=== PATIENT | male | born 1980 | race Caucasian/White ===

== ENCOUNTER 2017-02-23 12:55 | Inpatient (IN) | payer OTHER ==
[2017-02-23 13:32] VITALS: BMI 41.9
--- NOTE | 2017-02-23 16:28 | HP ---
CIWA Score - CIWA Score Nausea/Vomitin Muscle Tremors: 3 Anxiety: 4-Mod. Anxious/Guarded Agitation: 0-Normal Activity Paroxysmal Sweats: 2 Orientation: 2-Disoriented Date<2 days Tacttile Disturbances: 0-None Auditory Disturbances: 2-Mild Harshness/Frighten Visual Disturbances: 2-Mild Sensitivity Headache: 0-None Present CIWA-Ar Total Score: 18 Admission ROS S - HPI Chief Complaint: "I need to recover and to learn how not to do this again. I would like to get in to Rehab after I am done with Detox." Patient is here to Detox from Alcohol. Allergies/Adverse Reactions: Allergies Allergy/AdvReac Type Severity Reaction Status Date / Time No Known Allergies Allergy Verified 02/23/17 15:14 History of Present Illness: Patient is a 36 YO male here to Detox from Alcohol. This is patient's first Detox admission at [facility]. Patient had both a Detox and Rehab admission at [facility] in 09/2015. Exam Limitations: No Limitations - Ebola screening Have you traveled outside of the country in the last 21 days: No Have you had contact with anyone from an Ebola affected area: No Have you been sick,other than usual withdrawal symptoms: No Do you have a fever: No - Review of Systems Constitutional: Chills, Diaphoresis, Fever, Loss of Appetite, Malaise, Night Sweats, Unintentional Wgt. Loss (Lost approx. 45 lbs. over last 6 months.) EENT: reports: Tinnitus (Left Ear.) Respiratory: reports: No Symptoms reported Cardiac: reports: Palpitations GI: reports: Diarrhea, Nausea, Vomiting, Indigestion (Acid Reflux.), Abdominal cramping : reports: No Symptoms Reported Musculoskeletal: reports: Back Pain, Joint Pain, Joint Stiffness Integumentary: reports: No Symptoms Reported Neuro: reports: Headache, Numbness (Soles of Bilateral Feet.), Tingling (Soles of Bilateral Feet.), Tremors Endocrine: reports: No Symptoms Reported Hematology: reports: No Symptoms Reported, Easy Bruising Psychiatric: reports: Judgement Intact, Mood/Affect Appropiate, Depressed ( Treatment with both medication and counseling in the past. No treatment currently.), Disorientated (To Current Day.) Other Systems: Reviewed and Negative Patient History - Patient Medical History Hx Anemia: No Hx Asthma: Yes (Pt is on MDI.) Hx Chronic Obstructive Pulmonary Disease (COPD): No Hx Cancer: No Hx Cardiac Disorders: Yes (Arrythmia, treated with lifestyle change, no meds.) Hx Congestive Heart Failure: No Hx Hypertension: Yes (on meds., Unable to recall name.) Hx Hypercholesterolemia: No Hx Pacemaker: No HX Cerebrovascular Accident: No Hx Seizures: No Hx Dementia: No Hx Diabetes: No Hx Gastrointestinal Disorders: Yes (Hx of GERD.) Hx Liver Disease: No Hx Genitourinary Disorders: No Hx Sexually Transmitted Disorders: No Hx Renal Disease (ESRD): No Hx Thyroid Disease: No Hx Human Immunodeficiency Virus (HIV): No (Never Tested.) Hx Hepatitis C: No (Never Tested.) Hx Depression: Yes (No previous treatment.) Hx Suicide Attempt: No (PATIENT DENIES CURRENT SI / HI.) Hx Bipolar Disorder: Yes (Meds. in past, none currently.) Hx Schizophrenia: No Other Medical History: DENIES. - Patient Surgical History Past Surgical History: Yes Hx Neurologic Surgery: No Hx Cataract Extraction: No Hx Cardiac Surgery: No Hx Lung Surgery: No Hx Breast Surgery: No Hx Breast Biopsy: No Hx Abdominal Surgery: No Hx Appendectomy: No Hx Cholecystectomy: Yes (2012) Hx Genitourinary Surgery: No Hx Orthopedic Surgery: No Other Surgical History: Bilateral inguinal hernia repairs, 2012. Anesthesia Reaction: No - PPD History Previous Implant?: Yes Documented Results: Negative w/o proof Implanted On Prior R Admission?: No PPD to be Administered?: Yes - Reproductive History Patient is a Female of Child Bearing Age (11 -55 yrs old): No (PATIENT IS MALE.) - Smoking Cessation Smoking history: Current every day smoker Have you smoked in the past 12 months: Yes Aproximately how many cigarettes per day: 10 Cigars Per Day: 0 Hx Chewing Tobacco Use: No Initiated information on smoking cessation: Yes 'Breaking Loose' booklet given: 02/23/17 (GIVEN ON UNIT.) - Substance & Tx. History Hx Alcohol Use: Yes Hx Substance Use: Yes Substance Use Type: Alcohol, Cocaine, Heroin Hx Substance Use Treatment: Yes (1 Previous /Detox and Rehab admission at [facility] (09/2015).) - Substances Abused Alcohol Route: Oral Frequency: Daily Amount used: 3 - 24 oz beers/ 1 pint of vodka Age of first use: 18 Date of Last Use: 02/21/17 Cocaine Route: Smoking Frequency: Daily Amount used: 7 Dimes. Age of first use: 33 Date of Last Use: 02/21/17 Heroin Route: Smoking Frequency: 1-2 times per week Amount used: 1 bag Age of first use: 33 Date of Last Use: 02/21/17 Family Disease History - Family Disease History Family Disease History: Diabetes: Grandparent, Mother Admission Physical Exam [facility] - Vital Signs Vital Signs: Vital Signs - 24 hr 02/23/17 13:27 Temperature 97.8 F Pulse Rate 76 Respiratory 18 Rate Blood Pressure 158/92 - Physical General Appearance: Yes: No Apparent Distress, Nourished, Appropriately Dressed , Tremorous, Anxious HEENTM: Yes: Hearing grossly Normal, Normocephalic, Normal Voice, LIZ, Pharynx Normal Respiratory: Yes: Chest Non-Tender, Lungs Clear, No Respiratory Distress, No Accessory Muscle Use Neck: Yes: No masses,lesions,Nodules, Supple, Trachea in good position Breast: Yes: Breast Exam Deferred Cardiology: Yes: Regular Rhythm, Regular Rate, S1, S2 Abdominal: Yes: Normal Bowel Sounds, Non Tender, Soft, Protuberent Genitourinary: Yes: Within Normal Limits Back: Yes: Decreased Range of Motion Musculoskeletal: Yes: Gait Steady, Back pain, Joint Stiffness Extremities: Yes: Tremors, Pedal Edema (Also in Bilateral Lower Legs. Patient reports that this has been occurring for > 1 month. Patient was evaluated in ER previously, but did not follow-up with medical provider afterward. No erythema noted in bilateral legs / feet. Patient denies pain in bilateral legs / feet.) Neurological: Yes: Alert, Normal Mood/Affect, Normal Response, Disoriented (To Current Day / Date.) Integumentary: Yes: Normal Color, Dry, Warm Lymphatic: Yes: Within Normal Limits - Diagnostic (1) Alcohol dependence with uncomplicated withdrawal Current Visit: Yes Status: Acute (2) Opioid dependence, uncomplicated Current Visit: Yes Status: Chronic (3) Nicotine dependence Current Visit: Yes Status: Chronic Qualifiers: Nicotine product type: cigarettes Substance use status: uncomplicated Qualified Code(s): F17.210 - Nicotine dependence, cigarettes, uncomplicated (4) Depression (emotion) Current Visit: Yes Status: Suspected Qualifiers: Depression Type: unspecified Qualified Code(s): F32.9 - Major depressive disorder, single episode, unspecified (5) History of hypertension Current Visit: Yes Status: Chronic (6) Bilateral lower extremity edema Current Visit: Yes Status: Chronic (7) History of bipolar disorder Current Visit: Yes Status: Chronic (8) GERD (gastroesophageal reflux disease) Current Visit: Yes Status: Chronic Qualifiers: Esophagitis presence: esophagitis presence not specified Qualified Code(s) : K21.9 - Gastro-esophageal reflux disease without esophagitis (9) Asthma Current Visit: Yes Status: Chronic Qualifiers: Asthma severity: mild Asthma persistence: intermittent Asthma complication type: uncomplicated Qualified Code(s): J45.20 - Mild intermittent asthma, uncomplicated (10) History of cardiac arrhythmia Current Visit: Yes Status: Suspected (11) PCP (phencyclidine) abuse Current Visit: Yes Status: Acute Comment: 1 time only, approx. 6 days ago. [facility] Breath Alcohol Content Breath Alcohol Content: 0 Urine Drug Screen - Results Drug Screen Negative: No Urine Drug Screen Results: ROJAS-Cocaine
[2017-02-23] MEDS ORDERED: ACETAMINOPHEN 325 MG TABLET (FP) PO PRN (17:20)
[2017-02-23] MEDS ORDERED: NICOTINE POLACRILEX 2 MG GUM BC PRN (17:20)
[2017-02-23] MEDS ORDERED: MAGNESIUM CITRATE 300 ML BOTTLE PO PRN (17:20)
[2017-02-23] MEDS ORDERED: MAGNESIUM HYDROX 2400MG/30ML ORAL SUSPENSION 30 ML CUP PO PRN (17:20)
[2017-02-23] MEDS ORDERED: IBUPROFEN 400 MG TABLET (FP) PO PRN (17:20)
[2017-02-23] MEDS ORDERED: MENTHOL/PHENOL 1 EACH UD MM PRN (17:20)
[2017-02-23] MEDS ORDERED: guaiFENesin/D-METHORPHAN HB 10 ML UNIT-DOSE CUPS PO PRN (17:20)
[2017-02-23] MEDS ORDERED: MAG HYDROX/AL HYDROX/SIMETH 30 ML UNIT-DOSE CUP PO PRN (17:20)
[2017-02-23] MEDS ORDERED: chlordiazePOXIDE HCL 25 MG CAPSULE PO PRN (17:20)
[2017-02-23] MEDS ORDERED: LOPERAMIDE HCL 2 MG CAPSULE PO PRN (17:20)
[2017-02-23] MEDS ORDERED: P-EPHED 60MG/TRIPROLIDI 2.5MG TABLET PO PRN (17:20)
[2017-02-23] MEDS ORDERED: ALBUTEROL SO4 18 GM HFA INHALER IH PRN (17:23)
[2017-02-23] MEDS ORDERED: chlordiazePOXIDE HCL 25 MG CAPSULE PO ONE (18:00)
[2017-02-23] MEDS: NICOTINE 21 MG/24 HOURS TOPICAL PATCH TD SCH (18:40)
[2017-02-23] MEDS: chlordiazePOXIDE HCL 25 MG CAPSULE PO SCH (22:07)
[2017-02-23] MEDS: THIAMINE HCL 100 MG TABLET (FP) PO SCH (22:08)
[2017-02-24 01:26] LABS: URINE APPEARANCE SLCLOUDY; URINE BILIRUBIN NEGATIVE (NEGATIVE); URINE BLOOD 3+ (NEGATIVE); URINE COLOR YELLOW; URINE GLUCOSE (UA) 1+ (NEGATIVE); URINE KETONE NEGATIVE (NEGATIVE); URINE NITRITE NEGATIVE (NEGATIVE); URINE PROTEIN NEGATIVE (NEGATIVE)
[2017-02-24 02:05] LABS: URINE MUCUS RARE; URINE RBC 79 /hpf (0-3); URINE WBC 4 /hpf (3-5)
[2017-02-24] MEDS: chlordiazePOXIDE HCL 25 MG CAPSULE PO SCH ×4 (05:39→22:05)
--- NOTE | 2017-02-24 09:03 | EKG ---
Test Reason : Blood Pressure : / mmHG Vent. Rate : 069 BPM Atrial Rate : 069 BPM P-R Int : 144 ms QRS Dur : 090 ms QT Int : 420 ms P-R-T Axes : 061 063 060 degrees QTc Int : 450 ms NORMAL SINUS RHYTHM MINIMAL VOLTAGE CRITERIA FOR LVH, MAY BE NORMAL VARIANT BORDERLINE ECG NO PREVIOUS ECGS AVAILABLE Confirmed by ALFONSO FARMER MD ([id number]) on 02/24/2017 9:02:54 AM Referred By: Confirmed By:ALFONSO FARMER MD
[2017-02-24 10:24] LABS: MCH 28.8 pg (25.7-33.7); MEAN CELL VOLUME 87.2 fl (80-96); MEAN PLT VOLUME 8.9 fl (7.5-11.1); PLATELET COUNT 260 K/MM3 (134-434); RDW 14.3 % (11.9-15.9); WHITE BLOOD COUNT 10.3 K/mm3 (4.0-10.0)
[2017-02-24] MEDS: PRENATAL VITAMINS W/ FOLIC ACID TABLET (FP) PO SCH (10:28)
[2017-02-24] MEDS: FUROSEMIDE 20 MG TABLET (FP) PO SCH (10:28)
[2017-02-24] MEDS: NICOTINE 21 MG/24 HOURS TOPICAL PATCH TD SCH (10:28)
[2017-02-24 11:14] LABS: URINE LEUK ESTERASE Negative (NEGATIVE)
[2017-02-24 11:24] LABS: HIV 1 & 2 AB NEGATIVE; HIV 1 AGp24 NEGATIVE
--- NOTE | 2017-02-24 12:13 | CONSULT ---
[facility] Psychiatric Consult - Data Date of interview: 02/24/17 Admission source: [facility] Identifying data: First admission to [facility] for this 36 y/o male seeking detox treatment on for heroin,alcohol and cocaine dependence.Patient is single without children,domiciled,unemployed and deprived of financial assistance. Substance Abuse History: Confirmed by patient in this session.See current [facility] report for details : Smoking history: Current every day smoker. Have you smoked in the past 12 months: Yes. Aproximately how many cigarettes per day: 10. Cigars Per Day: 0. Hx Chewing Tobacco Use: No. Initiated information on smoking cessation: Yes. 'Breaking Loose' booklet given: 02/23/17 (GIVEN ON UNIT.). - Substance & Tx. History. Hx Alcohol Use: Yes. Hx Substance Use: Yes. Substance Use Type: Alcohol, Cocaine, Heroin. Hx Substance Use Treatment : Yes (1 Previous /Detox and Rehab admission at [facility] (09/2015).). - Substances Abused. Alcohol. Route: Oral. Frequency: Daily. Amount used: 3 - 24 oz beers/ 1 pint of vodka. Age of first use: 18. Date of Last Use: . Cocaine. Route: Smoking. Frequency: Daily. Amount used: 7 Dimes. Age of first use: 33. Date of Last Use: 02/21/17. Heroin. Route: Smoking. Frequency: 1-2 times per week. Amount used: 1 bag. Age of first use: 33. Date of Last Use: 02/21/17 Medical History: Bronchial asthma,hypertension,GERD and a history of bilateral inguinal herniorraphy. Psychiatric History: Patient denies. Physical/Sexual Abuse/Trauma History: Patient denies. Additional Comment: Urine Drug Screen Results: ROJAS-Cocaine.Noted. Mental Status Exam - Mental Status Exam Alert and Oriented to: Time, Place, Person Cognitive Function: Good Patient Appearance: Well Groomed Mood: Hopeful, Euthymic Affect: Appropriate, Normal Range Patient Behavior: Appropriate, Cooperative Speech Pattern: Clear, Appropriate Voice Loudness: Normal Thought Process: Intact, Goal Oriented Thought Disorder: Not Present Hallucinations: Denies Suicidal Ideation: Denies Homicidal Ideation: Denies Insight/Judgement: Poor Sleep: Fair Appetite: Good Muscle strength/Tone: Normal Gait/Station: Normal Psychiatric Findings - Problem List ([place] 1, 2,3) (1) Alcohol dependence with uncomplicated withdrawal Current Visit: Yes Status: Acute (2) Opioid dependence, uncomplicated Current Visit: Yes Status: Acute (3) Cocaine dependence Current Visit: Yes Status: Acute (4) Nicotine dependence Current Visit: Yes Status: Acute Qualifiers: Nicotine product type: cigarettes Substance use status: uncomplicated Qualified Code(s): F17.210 - Nicotine dependence, cigarettes, uncomplicated - Initial Treatment Plan Initial Treatment Plan: Psychoeducation.Detoxification in effect.Observation.
[2017-02-24 12:49] LABS: ALBUMIN 3.8 g/dl (3.4-5.0); ALK PHOS 120 U/L (45-117); ANION GAP 8 (8-16); BILIRUBIN,TOTAL 0.4 mg/dL (0.2-1.0); CALCIUM 8.1 mg/dL (8.5-10.1); CO2 26 mmol/L (21-32); CREATININE 1.2 mg/dL (0.7-1.3); GLUCOSE,RANDOM 123 mg/dL (74-106); SGOT/AST 19 U/L (15-37); SGPT/ALT 19 U/L (12-78); TOT PROT 6.9 g/dl (6.4-8.2)
--- NOTE | 2017-02-24 14:54 | PN ---
[facility] CIWA - CIWA Score Nausea/Vomitin-No Nausea/No Vomiting Muscle Tremors: 4-Moderate,w/Arms Extend Anxiety: 4-Mod. Anxious/Guarded Agitation: 4-Moderately Restless Paroxysmal Sweats: 3 Orientation: 0-Oriented Tacttile Disturbances: 2-Mild Itch/Numbness/Burn Auditory Disturbances: 0-None Visual Disturbances: 1-Very Mild Sensitivity Headache: 0-None Present CIWA-Ar Total Score: 18 S Progress Note (SOAP) Subjective: Tremors, Sweating, Body Aches, Anxious. Objective: PT. A & O X 3, OBSERVED AMBULATING ON UNIT. NO ACUTE DISTRESS. 02/24/17 14:52 Vital Signs Temperature 97.7 F 02/24/17 12:59 Pulse Rate 78 02/24/17 12:59 Respiratory Rate 18 02/24/17 12:59 Blood Pressure 136/74 02/24/17 12:59 O2 Sat by Pulse Oximetry (%) Laboratory Tests 02/23/17 02/23/17 02/24/17 06:00 23:00 06:00 WBC 10.3 H RBC 5.24 Hgb 15.1 Hct 45.7 MCV 87.2 MCH 28.8 MCHC 33.0 RDW 14.3 Plt Count 260 MPV 8.9 Sodium Potassium Chloride Carbon Dioxide Anion Gap BUN Creatinine Creat Clearance w eGFR Random Glucose Calcium Total Bilirubin AST ALT Alkaline Phosphatase Total Protein Albumin Urine Color Yellow Urine Appearance Slcloudy Urine pH 5.0 Ur Specific [place] 1.026 Urine Protein Negative Urine Glucose (UA) 1+ H Urine Ketones Negative Urine Blood 3+ H Urine Nitrite Negative Urine Bilirubin Negative Urine Urobilinogen 2.0 Ur Leukocyte Esterase Negative Urine WBC (Auto) 4 Urine RBC (Auto) 79 Ur Epithelial Cells Few Urine Mucus Rare RPR Titer HIV 1&2 Antibody Screen Negative HIV P24 Antigen Negative 02/24/17 02/24/17 06:00 06:00 WBC RBC Hgb Hct MCV MCH MCHC RDW Plt Count MPV Sodium 140 Potassium 3.9 Chloride 106 Carbon Dioxide 26 Anion Gap 8 BUN 18 Creatinine 1.2 Creat Clearance w eGFR > 60 Random Glucose 123 H Calcium 8.1 L Total Bilirubin 0.4 AST 19 ALT 19 Alkaline Phosphatase 120 H Total Protein 6.9 Albumin 3.8 Urine Color Urine Appearance Urine pH Ur Specific [place] Urine Protein Urine Glucose (UA) Urine Ketones Urine Blood Urine Nitrite Urine Bilirubin Urine Urobilinogen Ur Leukocyte Esterase Urine WBC (Auto) Urine RBC (Auto) Ur Epithelial Cells Urine Mucus RPR Titer Nonreactive HIV 1&2 Antibody Screen HIV P24 Antigen LABS NOTED. HCV AB RESULT PENDING. 02/24/17 14:54 Assessment: 02/24/17 14:52 WITHDRAWAL SYMPTOMS. Plan: CONTINUE DETOX. ADVISED PT. TO KEEP FEET ELEVATED WHILE LAYING BED TO HELP ALLEVIATE EDEMA IN LEGS. REPEAT UA FOR ADMISSION ABNORMALITIES.
[2017-02-24] MEDS: THIAMINE HCL 100 MG TABLET (FP) PO SCH (22:05)
[2017-02-25] MEDS: chlordiazePOXIDE HCL 25 MG CAPSULE PO SCH ×3 (05:57→17:04)
[2017-02-25] MEDS: PRENATAL VITAMINS W/ FOLIC ACID TABLET (FP) PO SCH (10:45)
[2017-02-25] MEDS: NICOTINE 21 MG/24 HOURS TOPICAL PATCH TD SCH (10:45)
[2017-02-25] MEDS: FUROSEMIDE 20 MG TABLET (FP) PO SCH (10:45)
--- NOTE | 2017-02-25 11:34 | PN ---
S CIWA - CIWA Score Nausea/Vomitin-Mild Nausea/No Vomiting Muscle Tremors: 2 Anxiety: 2 Agitation: 2 Paroxysmal Sweats: 3 Orientation: 0-Oriented Tacttile Disturbances: 1-Very Mild Itch/Numbness Auditory Disturbances: 0-None Visual Disturbances: 0-None Headache: 2-Mild CIWA-Ar Total Score: 13 S Progress Note (SOAP) Subjective: Sweating, anxious, interrupted sleep, nausea Objective: 02/25/17 11:30 Last Vital Signs Temp Pulse Resp BP Pulse Ox 96.7 F L 99 H 20 141/96 02/25/17 08:59 02/25/17 08:59 02/25/17 08:59 02/25/17 08:59 Elevated b/p Laboratory Tests 02/23/17 02/23/17 02/24/17 06:00 23:00 06:00 WBC 10.3 H RBC 5.24 Hgb 15.1 Hct 45.7 MCV 87.2 MCH 28.8 MCHC 33.0 RDW 14.3 Plt Count 260 MPV 8.9 Sodium Potassium Chloride Carbon Dioxide Anion Gap BUN Creatinine Creat Clearance w eGFR Random Glucose Calcium Total Bilirubin AST ALT Alkaline Phosphatase Total Protein Albumin Urine Color Yellow Urine Appearance Slcloudy Urine pH 5.0 Ur Specific [place] 1.026 Urine Protein Negative Urine Glucose (UA) 1+ H Urine Ketones Negative Urine Blood 3+ H Urine Nitrite Negative Urine Bilirubin Negative Urine Urobilinogen 2.0 Ur Leukocyte Esterase Negative Urine WBC (Auto) 4 Urine RBC (Auto) 79 Ur Epithelial Cells Few Urine Mucus Rare RPR Titer HIV 1&2 Antibody Screen Negative HIV P24 Antigen Negative 02/24/17 02/24/17 06:00 06:00 WBC RBC Hgb Hct MCV MCH MCHC RDW Plt Count MPV Sodium 140 Potassium 3.9 Chloride 106 Carbon Dioxide 26 Anion Gap 8 BUN 18 Creatinine 1.2 Creat Clearance w eGFR > 60 Random Glucose 123 H Calcium 8.1 L Total Bilirubin 0.4 AST 19 ALT 19 Alkaline Phosphatase 120 H Total Protein 6.9 Albumin 3.8 Urine Color Urine Appearance Urine pH Ur Specific [place] Urine Protein Urine Glucose (UA) Urine Ketones Urine Blood Urine Nitrite Urine Bilirubin Urine Urobilinogen Ur Leukocyte Esterase Urine WBC (Auto) Urine RBC (Auto) Ur Epithelial Cells Urine Mucus RPR Titer Nonreactive HIV 1&2 Antibody Screen HIV P24 Antigen Labs noted: UA abnormal, serum glucose 123 Assessment: 02/25/17 11:32 Withdrawal symptoms Noted with elevated blood pressure, hyperglycemia and abnormal UA Plan: Continue detox Elevated blood pressure: most likely due to withdrawal (previous readings within normal limits), continue to monitor, will order clonidine 0.1mg PO q8hr prn if b/p >140/90 Hyperglycemia: repeat serum glucose, send HbA1c Abnormal UA: encouraged to drink lots of water, repeat UA
[2017-02-25 20:45] LABS: URINE APPEARANCE CLEAR; URINE BILIRUBIN NEGATIVE (NEGATIVE); URINE BLOOD 1+ (NEGATIVE); URINE COLOR STRAW; URINE GLUCOSE (UA) NEGATIVE (NEGATIVE); URINE KETONE NEGATIVE (NEGATIVE); URINE NITRITE NEGATIVE (NEGATIVE); URINE PROTEIN NEGATIVE (NEGATIVE); URINE UROBILINOGEN NEGATIVE mg/dL (0.2-1.0)
[2017-02-25 20:51] LABS: URINE RBC 2 /hpf (0-3); URINE WBC <1 /hpf (3-5)
[2017-02-25 22:57] LABS: URINE LEUK ESTERASE Negative (NEGATIVE)
[2017-02-25] MEDS: chlordiazePOXIDE 5 MG CAPSULE PO SCH (23:01)
[2017-02-25] MEDS: THIAMINE HCL 100 MG TABLET (FP) PO SCH (23:01)
[2017-02-25] MEDS: cloNIDine HCL 0.1 MG TABLET PO PRN (23:01)
[2017-02-26] MEDS: chlordiazePOXIDE 5 MG CAPSULE PO SCH (06:30)
[2017-02-26] MEDS: FUROSEMIDE 20 MG TABLET (FP) PO SCH (10:07)
[2017-02-26] MEDS: NICOTINE 21 MG/24 HOURS TOPICAL PATCH TD SCH (10:07)
[2017-02-26] MEDS: PRENATAL VITAMINS W/ FOLIC ACID TABLET (FP) PO SCH (10:07)
--- NOTE | 2017-02-26 12:04 | PN ---
S Progress Note (SOAP) Subjective: Fatigue, Sweating. Objective: PT. A & O X 3, OBSERVED AMBULATING ON UNIT. NO ACUTE DISTRESS. 02/26/17 12:01 Vital Signs Temperature 97.5 F L 02/26/17 09:41 Pulse Rate 91 H 02/26/17 09:41 Respiratory Rate 18 02/26/17 09:41 Blood Pressure 135/91 02/26/17 09:41 O2 Sat by Pulse Oximetry (%) Laboratory Tests 02/23/17 02/23/17 02/24/17 06:00 23:00 06:00 WBC 10.3 H RBC 5.24 Hgb 15.1 Hct 45.7 MCV 87.2 MCH 28.8 MCHC 33.0 RDW 14.3 Plt Count 260 MPV 8.9 Sodium Potassium Chloride Carbon Dioxide Anion Gap BUN Creatinine Creat Clearance w eGFR Random Glucose Fasting Glucose Calcium Total Bilirubin AST ALT Alkaline Phosphatase Total Protein Albumin Urine Color Yellow Urine Appearance Slcloudy Urine pH 5.0 Ur Specific [place] 1.026 Urine Protein Negative Urine Glucose (UA) 1+ H Urine Ketones Negative Urine Blood 3+ H Urine Nitrite Negative Urine Bilirubin Negative Urine Urobilinogen 2.0 Ur Leukocyte Esterase Negative Urine WBC (Auto) 4 Urine RBC (Auto) 79 Ur Epithelial Cells Few Urine Mucus Rare RPR Titer HIV 1&2 Antibody Screen Negative HIV P24 Antigen Negative 02/24/17 02/24/17 02/25/17 06:00 06:00 11:52 WBC RBC Hgb Hct MCV MCH MCHC RDW Plt Count MPV Sodium 140 Potassium 3.9 Chloride 106 Carbon Dioxide 26 Anion Gap 8 BUN 18 Creatinine 1.2 Creat Clearance w eGFR > 60 Random Glucose 123 H Fasting Glucose Calcium 8.1 L Total Bilirubin 0.4 AST 19 ALT 19 Alkaline Phosphatase 120 H Total Protein 6.9 Albumin 3.8 Urine Color Straw Urine Appearance Clear Urine pH 7.0 D Ur Specific [place] 1.005 Urine Protein Negative Urine Glucose (UA) Negative Urine Ketones Negative Urine Blood 1+ H Urine Nitrite Negative Urine Bilirubin Negative Urine Urobilinogen Negative Ur Leukocyte Esterase Negative Urine WBC (Auto) <1 Urine RBC (Auto) 2 Ur Epithelial Cells Rare Urine Mucus RPR Titer Nonreactive HIV 1&2 Antibody Screen HIV P24 Antigen 02/26/17 07:00 WBC RBC Hgb Hct MCV MCH MCHC RDW Plt Count MPV Sodium Potassium Chloride Carbon Dioxide Anion Gap BUN Creatinine Creat Clearance w eGFR Random Glucose Fasting Glucose 90 Calcium Total Bilirubin AST ALT Alkaline Phosphatase Total Protein Albumin Urine Color Urine Appearance Urine pH Ur Specific [place] Urine Protein Urine Glucose (UA) Urine Ketones Urine Blood Urine Nitrite Urine Bilirubin Urine Urobilinogen Ur Leukocyte Esterase Urine WBC (Auto) Urine RBC (Auto) Ur Epithelial Cells Urine Mucus RPR Titer HIV 1&2 Antibody Screen HIV P24 Antigen LABS NOTED. FASTING GLUCOSE LEVEL NOTED. HCV AB RESULT PENDING. 02/26/17 12:04 Assessment: 02/26/17 12:02 WITHDRAWAL SYMPTOMS. Plan: CONTINUE DETOX.
[2017-02-26] MEDS: cloNIDine HCL 0.1 MG TABLET PO PRN (17:25)
[2017-02-26] MEDS: chlordiazePOXIDE HCL 10 MG CAPSULE PO SCH ×2 (17:25→22:18)
[2017-02-26] MEDS: THIAMINE HCL 100 MG TABLET (FP) PO SCH (22:18)
[2017-02-26] MEDS ORDERED: chlordiazePOXIDE HCL 10 MG CAPSULE PO SCH (23:00)
--- NOTE | 2017-02-26 23:54 | PN ---
[facility] Progress Note Note: received nurse call that the patient refuses librium 10 mg one dose today
[2017-02-27] MEDS: NICOTINE 21 MG/24 HOURS TOPICAL PATCH TD SCH (09:00)
[2017-02-27] MEDS: PRENATAL VITAMINS W/ FOLIC ACID TABLET (FP) PO SCH (09:00)
[2017-02-27] MEDS: FUROSEMIDE 20 MG TABLET (FP) PO SCH (09:00)
[2017-02-27 09:42] VITALS: BP 133/84; PULSE 90; TEMP 96.9
--- NOTE | 2017-02-27 12:41 | DS ---
[facility] Detox Discharge Summary Admission Date: 02/23/17 Discharge Date: 02/27/17 - History Present History: Alcohol Dependence, Cocaine Dependence Additional Comments: left [facility] , returned today to be admitted for rehab from alcohol , cocaine and opioid abuse at [facility] Pertinent Past History: GERd, anxiety, depression , insomnia, asthma, opioid and pcp abuse - Physical Exam Results Vital Signs: Vital Signs Temperature 96.9 F L 02/27/17 09:41 Pulse Rate 90 02/27/17 09:41 Respiratory Rate 18 02/27/17 09:41 Blood Pressure 133/84 02/27/17 09:41 O2 Sat by Pulse Oximetry (%) Laboratory Tests 02/23/17 02/23/17 02/24/17 06:00 23:00 06:00 WBC 10.3 H RBC 5.24 Hgb 15.1 Hct 45.7 MCV 87.2 MCH 28.8 MCHC 33.0 RDW 14.3 Plt Count 260 MPV 8.9 Sodium Potassium Chloride Carbon Dioxide Anion Gap BUN Creatinine Creat Clearance w eGFR Random Glucose Fasting Glucose Calcium Total Bilirubin AST ALT Alkaline Phosphatase Total Protein Albumin Urine Color Yellow Urine Appearance Slcloudy Urine pH 5.0 Ur Specific [place] 1.026 Urine Protein Negative Urine Glucose (UA) 1+ H Urine Ketones Negative Urine Blood 3+ H Urine Nitrite Negative Urine Bilirubin Negative Urine Urobilinogen 2.0 Ur Leukocyte Esterase Negative Urine WBC (Auto) 4 Urine RBC (Auto) 79 Ur Epithelial Cells Few Urine Mucus Rare RPR Titer HIV 1&2 Antibody Screen Negative HIV P24 Antigen Negative 02/24/17 02/24/17 02/25/17 06:00 06:00 11:52 WBC RBC Hgb Hct MCV MCH MCHC RDW Plt Count MPV Sodium 140 Potassium 3.9 Chloride 106 Carbon Dioxide 26 Anion Gap 8 BUN 18 Creatinine 1.2 Creat Clearance w eGFR > 60 Random Glucose 123 H Fasting Glucose Calcium 8.1 L Total Bilirubin 0.4 AST 19 ALT 19 Alkaline Phosphatase 120 H Total Protein 6.9 Albumin 3.8 Urine Color Straw Urine Appearance Clear Urine pH 7.0 D Ur Specific [place] 1.005 Urine Protein Negative Urine Glucose (UA) Negative Urine Ketones Negative Urine Blood 1+ H Urine Nitrite Negative Urine Bilirubin Negative Urine Urobilinogen Negative Ur Leukocyte Esterase Negative Urine WBC (Auto) <1 Urine RBC (Auto) 2 Ur Epithelial Cells Rare Urine Mucus RPR Titer Nonreactive HIV 1&2 Antibody Screen HIV P24 Antigen 02/26/17 07:00 WBC RBC Hgb Hct MCV MCH MCHC RDW Plt Count MPV Sodium Potassium Chloride Carbon Dioxide Anion Gap BUN Creatinine Creat Clearance w eGFR Random Glucose Fasting Glucose 90 Calcium Total Bilirubin AST ALT Alkaline Phosphatase Total Protein Albumin Urine Color Urine Appearance Urine pH Ur Specific [place] Urine Protein Urine Glucose (UA) Urine Ketones Urine Blood Urine Nitrite Urine Bilirubin Urine Urobilinogen Ur Leukocyte Esterase Urine WBC (Auto) Urine RBC (Auto) Ur Epithelial Cells Urine Mucus RPR Titer HIV 1&2 Antibody Screen HIV P24 Antigen Pertinent Admission Physical Exam Findings: withdrawal sx - Treatment Hospital Course: Detox Protocol Followed, Detoxed Safely, Responded well, Discharged Condition Good, Rehab Referral Accepted Patient has Accepted a Rehab Referral to: [facility] - Medication Discharge Medications: Ambulatory Orders Albuterol Sulfate Inhaler - [Ventolin HFA Inhaler -] 2 inh PO Q4H PRN 02/23/17 Topiramate [Topamax -] 100 mg PO DAILY 02/23/17 - Diagnosis (1) Alcohol dependence with uncomplicated withdrawal Status: Acute (2) Asthma Status: Chronic Qualifiers: Asthma severity: mild Asthma persistence: intermittent Asthma complication type: uncomplicated Qualified Code(s): J45.20 - Mild intermittent asthma, uncomplicated (3) Cocaine dependence Status: Chronic (4) GERD (gastroesophageal reflux disease) Status: Chronic Qualifiers: Esophagitis presence: esophagitis presence not specified Qualified Code(s) : K21.9 - Gastro-esophageal reflux disease without esophagitis (5) Opioid dependence, uncomplicated Status: Chronic (6) PCP dependence Status: Chronic (7) PCP (phencyclidine) abuse Status: Acute (8) Bilateral lower extremity edema Status: Chronic (9) Depression (emotion) Status: Suspected Qualifiers: Depression Type: unspecified Qualified Code(s): F32.9 - Major depressive disorder, single episode, unspecified (10) History of cardiac arrhythmia Status: Suspected - AMA Did Patient Leave Against Medical Advice: No
== END 2017-02-27 09:19 | disposition home or self-care (01) | DRG 773 ==
LOC: YASAS 12:55 → Y3N 15:38
PROVIDERS: ADMIT Internal Medicine; ATTEND Internal Medicine
PROC: HZ2ZZZZ Detoxification Services for Substance Abuse Treatment (ICD-10-PCS; principal; 2017-02-23)
DX: F11.20 Opioid dependence, uncomplicated (principal); F10.230 Alcohol dependence with withdrawal, uncomplicated; F14.20 Cocaine dependence, uncomplicated; F16.20 Hallucinogen dependence, uncomplicated; F17.210 Nicotine dependence, cigarettes, uncomplicated; F32.9 Major depressive disorder, single episode, unspecified; R60.0 Localized edema; K21.9 Gastro-esophageal reflux disease without esophagitis; Z86.79 Personal history of other diseases of the circulatory system; Z63.4 Disappearance and death of family member
CPT/HCPCS: 36415; 80053; 81003; 81015; 82947; 85027; 86593; 86803; 87389; 93005; 93010

== ENCOUNTER 2017-02-27 10:05 | Inpatient (IN) | payer OTHER ==
[2017-02-27 10:31] VITALS: BMI 41.9
[2017-02-27] MEDS ORDERED: hydrOXYzine PAMOATE 50 MG CAPSULE (FP) PO PRN (12:42)
[2017-02-27] MEDS ORDERED: P-EPHED 60MG/TRIPROLIDI 2.5MG TABLET PO PRN (12:42)
[2017-02-27] MEDS ORDERED: IBUPROFEN 400 MG TABLET (FP) PO PRN (12:42)
[2017-02-27] MEDS ORDERED: LOPERAMIDE HCL 2 MG CAPSULE PO PRN (12:42)
[2017-02-27] MEDS ORDERED: guaiFENesin/D-METHORPHAN HB 10 ML UNIT-DOSE CUPS PO PRN (12:42)
[2017-02-27] MEDS ORDERED: MENTHOL/PHENOL 1 EACH UD MM PRN (12:42)
[2017-02-27] MEDS ORDERED: MAGNESIUM CITRATE 300 ML BOTTLE PO PRN (12:42)
[2017-02-27] MEDS ORDERED: NICOTINE POLACRILEX 2 MG GUM BUC PRN (12:42)
[2017-02-27] MEDS ORDERED: MAGNESIUM HYDROX 2400MG/30ML ORAL SUSPENSION 30 ML CUP PO PRN (12:42)
[2017-02-27] MEDS ORDERED: ACETAMINOPHEN 325 MG TABLET (FP) PO PRN (12:42)
--- NOTE | 2017-02-27 12:42 | HP ---
[facility] Rehab Assess/Revision - Admission History Admitted to Rehab from: [facility] Date of Admission to Rehab: 02/27/17 - Vital signs Vital Signs: Vital Signs Period Temp Pulse Resp BP Sys/Lloyd Pulse Ox Last 24 Hr 98.1 F 90 18 132/70 - Findings Detox History & Physical reviewed: Yes Concur with findings: Yes Inpatient Rehab Admission - Initial Determination Are CD services needed?: Yes Free of communicable disease: Yes Not in need of hospitalization: Yes - Rehab Admission Criteria Comorbidities: Yes Patient is meeting Inpatient Rehab admission criteria:: Yes
[2017-02-27] MEDS ORDERED: ALBUTEROL SO4 18 GM HFA INHALER IH PRN (12:43)
[2017-02-27] MEDS: NICOTINE 14 MG/24 HOURS TOPICAL PATCH TD SCH (13:52)
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
[2017-02-27] MEDS ORDERED: THIAMINE HCL 100 MG TABLET (FP) PO SCH (22:00)
[2017-02-27] MEDS: MAG HYDROX/AL HYDROX/SIMETH 30 ML UNIT-DOSE CUP PO PRN (22:39)
[2017-02-28] MEDS: MAG HYDROX/AL HYDROX/SIMETH 30 ML UNIT-DOSE CUP PO PRN ×2 (06:20→11:45)
[2017-02-28 07:03] VITALS: BP 139/75; PULSE 69; TEMP 98.3
[2017-02-28] MEDS ORDERED: PRENATAL VITAMINS W/ FOLIC ACID TABLET (FP) PO SCH (10:00)
[2017-02-28] MEDS: NICOTINE 14 MG/24 HOURS TOPICAL PATCH TD SCH (10:46)
--- NOTE | 2017-02-28 16:55 | PN ---
[facility] Progress Note Note: was informed by medical staff that patient left treatment AMA today, please see staff notes
== END 2017-02-28 15:25 | disposition left against medical advice (07) | DRG 770 ==
LOC: YASAS 10:05 → Y5N 13:03
PROVIDERS: ADMIT Psychiatry & Neurology Psychiatry; ATTEND Psychiatry & Neurology Psychiatry
PROC: HZ42ZZZ Group Counseling for Substance Abuse Treatment, Cognitive-Behavioral (ICD-10-PCS; principal; 2017-02-27)
DX: F11.20 Opioid dependence, uncomplicated (principal); F10.20 Alcohol dependence, uncomplicated; F14.20 Cocaine dependence, uncomplicated; F12.10 Cannabis abuse, uncomplicated; Z63.4 Disappearance and death of family member

== ENCOUNTER 2017-09-10 10:18 | Inpatient (IN) | payer OTHER ==
[2017-09-10 10:48] VITALS: BMI 50.8
--- NOTE | 2017-09-10 11:36 | HP ---
Admission [facility] Chief Complaint: PATIENT PRESENT FOR REHAB SERVICES FOR ETOH, COCAINE AND MARIJUANA DEPENDENCE. Allergies/Adverse Reactions: Allergies Allergy/AdvReac Type Severity Reaction Status Date / Time No Known Allergies Allergy Verified 09/10/17 10:52 History of Present Illness: PATIENT PRESENTS FOR REHAB SERVICES FOR ETOH, COCAINE AND MARIJUANA DEPENDENCE. PATIENT COMPLETED DETOX AT [facility] YESTER[facility] 09/09/17. PATIENT PRESENTS FOR REHAB SERVICES AT [facility] TODAY. PATIENT STARTED DRINKING AT AGE 19, DRINKS UP TO 12 BEERS AND 5 SHOTS OF VODKA DAILY. LAST DRINK 5 DAYS AGO. STARTED SMOKING MARIJUANA AT AGE 15,SMOKES 2 BLUNTS DAILY. LAST TIME SMOKED 5 DAYS AGO. PATIENT STARTED SNIFFING COCAINE AT AGE 33, USES UP TO 7-8 BAGS DAILY, LAST TIME HE SNIFFED WAS ONE WEEK AGO. PMH BIPOLAR DISORDER AND ASTHMA. DENIES SI/HI AND SUICIDE ATTEMPTS. Exam Limitations: No Limitations - Ebola screening Have you traveled outside of the country in the last 21 days: No Have you had contact with anyone from an Ebola affected area: No Have you been sick,other than usual withdrawal symptoms: No Do you have a fever: No - Review of Systems Constitutional: Night Sweats, Changes in sleep EENT: reports: Nose Congestion Respiratory: reports: SOB with Exertion Cardiac: reports: No Symptoms Reported GI: reports: Nausea : reports: No Symptoms Reported Musculoskeletal: reports: Back Pain, Muscle Pain Integumentary: reports: Sweating Neuro: reports: No Symptoms reported Endocrine: reports: No Symptoms Reported Hematology: reports: No Symptoms Reported Psychiatric: reports: Orientated x3, Anxious, Depressed Patient History - Patient Medical History Hx Anemia: No Hx Asthma: Yes (Pt is on MDI.) Hx Chronic Obstructive Pulmonary Disease (COPD): No Hx Cancer: No Hx Cardiac Disorders: Yes (Arrythmia, treated with lifestyle change, no meds.) Hx Congestive Heart Failure: No Hx Hypertension: Yes (on meds., Unable to recall name.) Hx Hypercholesterolemia: No Hx Pacemaker: No HX Cerebrovascular Accident: No Hx Seizures: No Hx Dementia: No Hx Diabetes: No Hx Gastrointestinal Disorders: Yes (Hx of GERD.) Hx Liver Disease: No Hx Genitourinary Disorders: No Hx Sexually Transmitted Disorders: No Hx Renal Disease (ESRD): No Hx Thyroid Disease: No Hx Human Immunodeficiency Virus (HIV): No (Never Tested.) Hx Hepatitis C: No (Never Tested.) Hx Depression: Yes (No previous treatment.) Hx Suicide Attempt: No (PATIENT DENIES CURRENT SI / HI.) Hx Bipolar Disorder: Yes (Meds. in past, none currently.) Hx Schizophrenia: No - Patient Surgical History Past Surgical History: Yes Hx Neurologic Surgery: No Hx Cataract Extraction: No Hx Cardiac Surgery: No Hx Lung Surgery: No Hx Breast Surgery: No Hx Breast Biopsy: No Hx Abdominal Surgery: No Hx Appendectomy: No Hx Cholecystectomy: Yes (2012) Hx Genitourinary Surgery: No Hx Orthopedic Surgery: No Other Surgical History: Bilateral inguinal hernia repairs, 2012. Anesthesia Reaction: No - PPD History Date: 02/25/17 Results: 0 mm. PPD to be Administered?: No - Smoking Cessation Smoking history: Current every day smoker Have you smoked in the past 12 months: Yes Aproximately how many cigarettes per day: 10 Cigars Per Day: 0 Hx Chewing Tobacco Use: No Initiated information on smoking cessation: Yes 'Breaking Loose' booklet given: 09/10/17 - Substance & Tx. History Hx Alcohol Use: Yes Hx Substance Use: Yes Substance Use Type: Alcohol, Cocaine, Marijuana Hx Substance Use Treatment: Yes - Substances Abused Alcohol Route: Oral Frequency: Daily Amount used: 6pk beer 24 oz cans Age of first use: 19 Date of Last Use: 09/01/17 Marijuana/Hashish Route: Smoking Frequency: Daily Amount used: 2-3 blunts Age of first use: 15 Date of Last Use: 09/01/17 Cocaine Route: Smoking Frequency: Daily Amount used: $70 Age of first use: 33 Date of Last Use: 09/01/17 Family Disease History - Family Disease History Family Disease History: Diabetes: Grandparent, Mother Admission Physical Exam S - Vital Signs Vital Signs: Vital Signs - 24 hr 09/10/17 10:45 Temperature 96.4 F L Pulse Rate 69 Respiratory 18 Rate Blood Pressure 143/81 - Physical General Appearance: Yes: Within Normal Limits, No Apparent Distress, Nourished, Appropriately Dressed HEENTM: Yes: EOMI, Hearing grossly Normal, Normal ENT Inspection, Normocephalic , Normal Voice, LIZ, Pharynx Normal Respiratory: Yes: Chest Non-Tender, Lungs Clear, Normal Breath Sounds, No Respiratory Distress, No Accessory Muscle Use Neck: Yes: No masses,lesions,Nodules, Supple Breast: Yes: Breast Exam Deferred Cardiology: Yes: Regular Rhythm, Regular Rate, S1, S2 Abdominal: Yes: Normal Bowel Sounds, Non Tender, Soft Genitourinary: Yes: Within Normal Limits Back: Yes: Normal Inspection, Muscle Spasm Musculoskeletal: Yes: full range of Motion, Gait Steady, Back pain Extremities: Yes: Normal Inspection, Normal Range of Motion, Non-Tender Neurological: Yes: cyber incident responder II-XII NML intact, Fully Oriented, Alert, Motor Strength 5/5, Normal Mood/Affect, Normal Response Integumentary: Yes: Normal Color, Dry, Warm Lymphatic: Yes: Within Normal Limits - Diagnostic (1) Alcohol dependence Current Visit: Yes Status: Acute Qualifiers: Substance use status: uncomplicated Qualified Code(s): F10.20 - Alcohol dependence, uncomplicated (2) Asthma Current Visit: Yes Status: Chronic Qualifiers: Asthma severity: mild Asthma persistence: intermittent Asthma complication type: uncomplicated Qualified Code(s): J45.20 - Mild intermittent asthma, uncomplicated (3) Bilateral lower extremity edema Current Visit: Yes Status: Chronic (4) Cocaine dependence Current Visit: Yes Status: Chronic Qualifiers: Substance use status: uncomplicated Qualified Code(s): F14.20 - Cocaine dependence, uncomplicated (5) History of bipolar disorder Current Visit: Yes Status: Chronic (6) Nicotine dependence Current Visit: Yes Status: Chronic Qualifiers: Nicotine product type: cigarettes (7) Depression (emotion) Current Visit: Yes Status: Suspected Qualifiers: Depression Type: unspecified Qualified Code(s): F32.9 - Major depressive disorder, single episode, unspecified Cleared for Admission [facility] - Detox or Rehab Claeared for Rehab Admission: Yes [facility] Breath Alcohol Content Breath Alcohol Content: 0 Urine Drug Screen - Results Drug Screen Negative: No Urine Drug Screen Results: THC-Marijuana, BZO-Benzodiazepines Inpatient Rehab Admission - Initial Determination Are CD services needed?: Yes Free of communicable disease: Yes Not in need of hospitalization: Yes - Rehab Admission Criteria Previous failed treatment: Yes Poor recovery environment: Yes Comorbidities: Yes Lacks judgement: Yes Patient is meeting Inpatient Rehab admission criteria:: Yes
[2017-09-10] MEDS ORDERED: ACETAMINOPHEN 325 MG TABLET (FP) PO PRN (11:42)
[2017-09-10] MEDS ORDERED: IBUPROFEN 400 MG TABLET (FP) PO PRN (11:42)
[2017-09-10] MEDS ORDERED: P-EPHED 60MG/TRIPROLIDI 2.5MG TABLET PO PRN (11:42)
[2017-09-10] MEDS ORDERED: MAG HYDROX/AL HYDROX/SIMETH 30 ML UNIT-DOSE CUP PO PRN (11:42)
[2017-09-10] MEDS ORDERED: guaiFENesin/D-METHORPHAN HB 10 ML UNIT-DOSE CUPS PO PRN (11:42)
[2017-09-10] MEDS ORDERED: hydrOXYzine PAMOATE 50 MG CAPSULE (FP) PO PRN (11:42)
[2017-09-10] MEDS ORDERED: MAGNESIUM CITRATE 300 ML BOTTLE PO PRN (11:42)
[2017-09-10] MEDS ORDERED: MAGNESIUM HYDROX 2400MG/30ML ORAL SUSPENSION 30 ML CUP PO PRN (11:42)
[2017-09-10] MEDS ORDERED: NICOTINE POLACRILEX 2 MG GUM BUC PRN (11:42)
[2017-09-10] MEDS ORDERED: LOPERAMIDE HCL 2 MG CAPSULE PO PRN (11:42)
[2017-09-10] MEDS ORDERED: MENTHOL/PHENOL 1 EACH UD MM PRN (11:42)
[2017-09-10] MEDS ORDERED: ALBUTEROL SO4 18 GM HFA INHALER IH PRN (11:45)
[2017-09-10 14:32] LABS: ALBUMIN 3.3 g/dl (3.4-5.0); CHLORIDE 105 mmol/L (98-107); POTASSIUM 4.4 mmol/L (3.5-5.1); SODIUM 139 mmol/L (136-145)
[2017-09-10 14:39] LABS: ALK PHOS 82 U/L (45-117); ANION GAP 8 (8-16); BILIRUBIN,TOTAL 0.2 mg/dL (0.2-1.0); BLOOD UREA NITROGEN 19 mg/dL (7-18); CALCIUM 8.5 mg/dL (8.5-10.1); CO2 26 mmol/L (21-32); CREATININE 1.1 mg/dL (0.7-1.3); GLUCOSE,RANDOM 119 mg/dL (74-106); SGOT/AST 20 U/L (15-37); SGPT/ALT 26 U/L (12-78); TOT PROT 6.8 g/dl (6.4-8.2)
[2017-09-10 14:49] LABS: HEMATOCRIT 47.3 % (35.4-49); HEMOGLOBIN 15.6 GM/dL (11.7-16.9); MCH 28.5 pg (25.7-33.7); MEAN CELL VOLUME 86.2 fl (80-96); MEAN PLT VOLUME 8.3 fl (7.5-11.1); PLATELET COUNT 341 K/MM3 (134-434); RBC 5.49 M/mm3 (4.00-5.60); WHITE BLOOD COUNT 9.6 K/mm3 (4.0-10.0)
--- NOTE | 2017-09-10 17:12 | HP ---
Psychiatrist Admission - Data Date of interview: 09/10/17 Admission source: [facility] Identifying data: This is the second admission to [address] [place] [address] for this 37 yo single father of 11 yo son,resides alone , supported by [facility]. Medical History: BA,HTN,GERD. Psychiatric History: Patient has long and extensive psychiatric history .He was dx with Bipolar disorder when he was admitted to [facility] at 15 yo due to mood instability,anxiety,depression.Patient reports 4 more psychiatric hospitalizations.He was on different psychotropic medications .patient sees psychiatrist at [facility].[place] [facility].Current medications:Topamax 25 mg po bid. Physical/Sexual Abuse/Trauma History: denies Vital Signs: Vital Signs - 24 hr 09/10/17 09/10/17 10:45 14:14 Temperature 96.4 F L 96.4 F L Pulse Rate 69 63 Respiratory 18 18 Rate Blood Pressure 143/81 142/73 Allergies/Adverse Reactions: Allergies Allergy/AdvReac Type Severity Reaction Status Date / Time No Known Allergies Allergy Verified 09/10/17 10:52 Date of last physical exam: 09/10/17 Concur with the findings of this exam: Yes - Substance Abuse/Tx History Hx Alcohol Use: Yes (drinking since 19 yo,6 pk beer 24 oz plus 5 shots of vodka daily) Hx Substance Use: Yes (marijuana 15 yo,2 blunts daily,cocaine since 33 yo,$70 daily) Substance Use Type: Alcohol, Cocaine, Marijuana Hx Substance Use Treatment: Yes (completed detox before admission) Mental Status Exam - Mental Status Exam Alert and Oriented to: Time, Place, Person Cognitive Function: Grossly Intact Patient Appearance: Well Groomed Mood: Hopeful, Euthymic Affect: Mood Congruent Patient Behavior: Cooperative Speech Pattern: Clear Voice Loudness: Normal Thought Process: Goal Oriented Thought Disorder: Not Present Hallucinations: Denies Suicidal Ideation: Denies Homicidal Ideation: Denies Insight/Judgement: Fair Sleep: Fair Appetite: Fair Muscle strength/Tone: Normal Gait/Station: Normal Psychiatric Findings - Problem List ([place] 1, 2,3) (1) Alcohol dependence Current Visit: Yes Status: Chronic Qualifiers: Substance use status: uncomplicated Qualified Code(s): F10.20 - Alcohol dependence, uncomplicated (2) Asthma Current Visit: Yes Status: Chronic Qualifiers: Asthma severity: mild Asthma persistence: intermittent Asthma complication type: uncomplicated Qualified Code(s): J45.20 - Mild intermittent asthma, uncomplicated (3) Cocaine dependence Current Visit: Yes Status: Chronic Qualifiers: Substance use status: uncomplicated Qualified Code(s): F14.20 - Cocaine dependence, uncomplicated (4) Nicotine dependence Current Visit: Yes Status: Chronic Qualifiers: Nicotine product type: cigarettes (5) Bipolar disorder Current Visit: Yes Status: Chronic (6) Opioid dependence Current Visit: Yes Status: Chronic (7) PCP (phencyclidine) abuse Current Visit: Yes Status: Chronic Comment: 1 time only, approx. 6 days ago. (8) GERD (gastroesophageal reflux disease) Current Visit: Yes Status: Chronic Qualifiers: Esophagitis presence: esophagitis presence not specified Qualified Code(s) : K21.9 - Gastro-esophageal reflux disease without esophagitis (9) History of hypertension Current Visit: Yes Status: Chronic - Initial Treatment Plan Initial Treatment Plan: Topamax 25 mg po bid.
[2017-09-10] MEDS: THIAMINE HCL 100 MG TABLET (FP) PO SCH (21:19)
[2017-09-10] MEDS: TOPIRAMATE 25 MG TABLET (FP) PO SCH (21:19)
[2017-09-10] MEDS ORDERED: MELATONIN 5 MG TABLETS PO PRN (22:00)
[2017-09-11] MEDS: PRENATAL VITAMINS W/ FOLIC ACID TABLET (FP) PO SCH (10:15)
[2017-09-11] MEDS: TOPIRAMATE 25 MG TABLET (FP) PO SCH ×2 (10:15→21:08)
[2017-09-11] MEDS: NICOTINE 21 MG/24 HOURS TOPICAL PATCH TD SCH (10:15)
--- NOTE | 2017-09-11 13:46 | PN ---
S Progress Note Note: Patient evaluated by placement interviewer, placement interviewer request Fasting BGM. Ordered placed for tomorrow AM
--- NOTE | 2017-09-11 14:20 | EKG ---
Test Reason : Blood Pressure : / mmHG Vent. Rate : 065 BPM Atrial Rate : 065 BPM P-R Int : 140 ms QRS Dur : 092 ms QT Int : 426 ms P-R-T Axes : 041 032 043 degrees QTc Int : 443 ms NORMAL SINUS RHYTHM NORMAL ECG WHEN COMPARED WITH ECG OF 23-FEB-2017 19:49, NO SIGNIFICANT CHANGE WAS FOUND Confirmed by MD Hansen Edward ([id number]) on 09/11/2017 2:19:43 PM Referred By: Confirmed By:Papo Hansen MD
[2017-09-11] MEDS: THIAMINE HCL 100 MG TABLET (FP) PO SCH (21:08)
[2017-09-12] MEDS: TOPIRAMATE 25 MG TABLET (FP) PO SCH ×2 (10:06→21:15)
[2017-09-12] MEDS: PRENATAL VITAMINS W/ FOLIC ACID TABLET (FP) PO SCH (10:06)
[2017-09-12] MEDS: NICOTINE 21 MG/24 HOURS TOPICAL PATCH TD SCH (10:07)
[2017-09-12] MEDS: THIAMINE HCL 100 MG TABLET (FP) PO SCH (21:15)
[2017-09-13 07:32] VITALS: BP 149/84; PULSE 68; TEMP 97.9
[2017-09-13] MEDS: NICOTINE 21 MG/24 HOURS TOPICAL PATCH TD SCH (10:00)
[2017-09-13] MEDS: PRENATAL VITAMINS W/ FOLIC ACID TABLET (FP) PO SCH (10:00)
[2017-09-13] MEDS: TOPIRAMATE 25 MG TABLET (FP) PO SCH (10:00)
--- NOTE | 2017-09-13 10:01 | PN ---
Psychiatric Progress Note Vital Signs: Vital Signs Period Temp Pulse Resp BP Sys/Lloyd Pulse Ox Last 24 Hr 97.9 F 68 18-18 149/84 Date of Session: 09/13/17 Chief Complaint:: Discharge visit HPI: Opioid,cocaine and Alcohol dependence comorbid with Bipolar disorder. ROS: BA,GERD,HTN. Current Medications: Active Medications Generic Name Dose Route Start Last Admin Trade Name Freq PRN Reason Stop Dose Admin Acetaminophen 650 mg 09/10/17 11:42 Tylenol - PO Q4H PRN FEVER Al Hydroxide/Mg Hydroxide 30 ml 09/10/17 11:42 Mylanta Oral Suspension - PO Q6H PRN DYSPEPSIA Albuterol Sulfate 2 puff 09/10/17 11:45 Ventolin Hfa Inhaler - IH Q4H PRN ASTHMA Eucalyptus/Menthol/Phenol/Sorbitol 1 each 09/10/17 11:42 Cepastat Lozenge - MM Q4H PRN SORE THROAT Guaifenesin 10 ml 09/10/17 11:42 Robitussin Dm - PO Q6H PRN COUGH Hydroxyzine Pamoate 50 mg 09/10/17 11:42 Vistaril - PO Q4H PRN AGITATION Ibuprofen 400 mg 09/10/17 11:42 Motrin - PO Q6H PRN Pain level 4-6 Loperamide HCl 4 mg 09/10/17 11:42 Imodium - PO Q6H PRN DIARRHEA Magnesium Citrate 300 ml 09/10/17 11:42 Citroma - PO Q48H PRN CONSTIPATION Magnesium Hydroxide 30 ml 09/10/17 11:42 Milk Of Magnesia - PO DAILY PRN CONSTIPATION Melatonin 5 mg 09/10/17 22:00 Melatonin PO HS PRN INSOMNIA Nicotine 21 mg 09/11/17 10:00 09/12/17 10:07 Nicoderm Patch - TD Not Given DAILY PAMELLA Nicotine Polacrilex 2 mg 09/10/17 11:42 09/12/17 10:07 Nicorette Gum - BUC 2 mg Q2H PRN Administration NICOTINE REPLACEMENT RX Multivit/Folic Acid/Iron 1 tab 09/11/17 10:00 09/12/17 10:06 Vitamins (Sjr) - PO 1 tab DAILY PAMELLA Administration Pseudoephedrine/Triprolidine 1 combo 09/10/17 11:42 Actifed - PO TID PRN NASAL CONGESTION Thiamine HCl 100 mg 09/10/17 22:00 09/12/17 21:15 Vitamin B1 - PO 100 mg HS PAMELLA Administration Topiramate 25 mg 09/10/17 22:00 09/12/17 21:15 Topamax - PO 25 mg BID PAMELLA Administration Current Side Effect: No Lab tests ordered: No Lab tests reviewed: Yes Provider note:: Patient decided to sign out today without giving any reasonable explanation for his decision.[employer] and other medical staff tried to convince him to continue inpatient stabilization but patient ignored our recommendations.he will continue to address his issues on outpatient basis at [facility] in the [place].Patient reports finding that current medications including Topamax 25 mg po bid help to cope with mood instability, anxiety.scripts for 30 days provided. supportive therapy proivided focusing on relapse prevention. Total face to face time:: 30 Mental Status Exam - Mental Status Exam Alert and Oriented to: Time, Place, Person Cognitive Function: Grossly Intact Patient Appearance: Unkempt Mood: Euthymic Affect: Mood Congruent Patient Behavior: Uncooperative, Resitive to Care Speech Pattern: Clear Voice Loudness: Normal Thought Process: Goal Oriented Thought Disorder: Being Controlled Hallucinations: Denies Suicidal Ideation: Denies Homicidal Ideation: Denies Insight/Judgement: Impaired Sleep: Fair Appetite: Fair Muscle strength/Tone: Normal Gait/Station: Normal Psychiatric Treatment Plan - Problem List (1) Alcohol dependence Current Visit: Yes Qualifiers: Substance use status: uncomplicated Qualified Code(s): F10.20 - Alcohol dependence, uncomplicated (2) Asthma Current Visit: Yes Qualifiers: Asthma severity: mild Asthma persistence: intermittent Asthma complication type: uncomplicated Qualified Code(s): J45.20 - Mild intermittent asthma, uncomplicated (3) Cocaine dependence Current Visit: Yes Qualifiers: Substance use status: uncomplicated Qualified Code(s): F14.20 - Cocaine dependence, uncomplicated (4) Nicotine dependence Current Visit: Yes Qualifiers: Nicotine product type: cigarettes (5) Bipolar disorder Current Visit: Yes (6) Opioid dependence Current Visit: Yes (7) PCP (phencyclidine) abuse Current Visit: Yes Comment: 1 time only, approx. 6 days ago. (8) GERD (gastroesophageal reflux disease) Current Visit: Yes Qualifiers: Esophagitis presence: esophagitis presence not specified Qualified Code(s) : K21.9 - Gastro-esophageal reflux disease without esophagitis (9) History of hypertension Current Visit: Yes
[2017-09-13 14:05] LABS: URINE APPEARANCE CLEAR; URINE BILIRUBIN NEGATIVE (<2.0 mg/dL); URINE COLOR LTYELLOW; URINE GLUCOSE (UA) NEGATIVE (NEGATIVE); URINE KETONE NEGATIVE (NEGATIVE); URINE LEUK ESTERASE NEGATIVE (NEGATIVE); URINE NITRITE NEGATIVE (NEGATIVE); URINE PROTEIN NEGATIVE (NEGATIVE); URINE UROBILINOGEN NEGATIVE mg/dL (0.2-1.0)
[2017-09-13 14:18] LABS: EPI CELLS RARE /HPF (FEW)
== END 2017-09-13 11:05 | disposition left against medical advice (07) | DRG 770 ==
LOC: YASAS 10:18 → Y5N 11:54
PROVIDERS: ADMIT Psychiatry & Neurology Psychiatry; ATTEND Psychiatry & Neurology Psychiatry
PROC: HZ42ZZZ Group Counseling for Substance Abuse Treatment, Cognitive-Behavioral (ICD-10-PCS; principal; 2017-09-10)
DX: F10.20 Alcohol dependence, uncomplicated (principal); F14.20 Cocaine dependence, uncomplicated; F17.210 Nicotine dependence, cigarettes, uncomplicated; F16.10 Hallucinogen abuse, uncomplicated; F31.9 Bipolar disorder, unspecified; I10 Essential (primary) hypertension; J45.20 Mild intermittent asthma, uncomplicated; Z86.79 Personal history of other diseases of the circulatory system
CPT/HCPCS: 36415; 80053; 81003; 81015; 85027; 86593; 87389; 93005; 93010

== ENCOUNTER 2019-02-24 13:23 | Inpatient (IN) | payer OTHER ==
[2019-02-24 14:13] VITALS: BMI 25.9
--- NOTE | 2019-02-24 18:28 | HP ---
COWS - Scale Resting Pulse: 1= [place] 81-100 Sweatin= Chills/Flushing Restless Observation: 1= Difficult to Sit Still Pupil Size: 0= Normal to Room Light Bone or Joint Aches: 0= None Runny Nose/ Eye Tearin= Nasal Congestion GI Upset > 30mins: 0= None Tremor Observation: 2= Slight Tremor Visible Yawning Observation: 0= None Anxiety or Irritability: 1=Feels Anxious/Irritable Goose Flesh Skin: 0=Smooth Skin COWS Score: 7 CIWA Score Nausea/Vomitin-No Nausea/No Vomiting Muscle Tremors: 4-Moderate,w/Arms Extend Anxiety: 3 Agitation: 2 Paroxysmal Sweats: No Perspiration Orientation: 0-Oriented Tacttile Disturbances: 0-None Auditory Disturbances: 0-None Visual Disturbances: 0-None Headache: 0-None Present CIWA-Ar Total Score: 9 - Admission Criteria OASAS Guidelines: Admission for Medically Managed Detox: Requires at least one of the followin. CIWA greater than 12 2. Seizures within the past 24 hours 3. Delirium tremens within the past 24 hours 4. Hallucinations within the past 24 hours 5. Acute intervention needed for co occurring medical disorder 6. Acute intervention needed for co occurring psychiatric disorder 7. Severe withdrawal that cannot be handled at a lower level of care (continued vomiting, continued diarrhea, abnormal vital signs) requiring intravenous medication and/or fluids 8. Admitting History and Physical - Smoking History Smoking history: Current every day smoker Have you smoked in the past 12 months: Yes Aproximately how many cigarettes per day: 10 - Alcohol/Substance Use Hx Alcohol Use: Yes (drinking since 19 yo,6 pk beer 24 oz plus 5 shots of vodka daily) Admission [facility] Allergies/Adverse Reactions: Allergies Allergy/AdvReac Type Severity Reaction Status Date / Time No Known Allergies Allergy Verified 02/24/19 14:06 History of Present Illness: 38 y/o M with History of of heroin, cocaine, marijuana, K2,and alcohol use presents [facility]. Sniffs one bag of heroin since 15. last use sunday sniffs one bag of cocaine since 15. Last use also sunday Smokes marijuana 2 blunts a day . drinks about 1 pint of alcohol and drinks 2 beers a day. last use was sunday. history of blackouts. no withdrawal seizures. Uses all of them every other day. Prior detox and rehab history here at [facility]. Pt admits to never completed none of them Legally required to be here PMH: back and leg pain PSYCH : bipolar on topiramate PSH : inguinal hernia repair b/l Social Hx:alone. unemployed on SSI. PE : VS 98.8F, 127/72 mmhg, 86 bpm, 20 Utox : thc, stephanie, bzo DUKE 0 CIWA 9 COWs 7 General: angry and anxious HEENT: PERRLA, moist membrane, nasal congestion LUNG : VBS b/l HEART: RRR no MRG Abdomen : +BS , NTND extremities: 2+ pulses, no edema neuro: grossly intact Plan : AUD: valium protocol heroin withdrawal : methadone protocol Psych consult for bipolar disorder and med adjustment - Ebola screening Have you traveled outside of the country in the last 21 days: No Have you had contact with anyone from an Ebola affected area: No Do you have a fever: No Patient History - Patient Medical History Hx Anemia: No Hx Asthma: Yes (Pt is on MDI.) Hx Chronic Obstructive Pulmonary Disease (COPD): No Hx Cancer: No Hx Cardiac Disorders: Yes (Arrythmia, treated with lifestyle change, no meds.) Hx Congestive Heart Failure: No Hx Hypertension: Yes (on meds., Unable to recall name.) Hx Hypercholesterolemia: No Hx Pacemaker: No HX Cerebrovascular Accident: No Hx Seizures: No Hx Dementia: No Hx Diabetes: No Hx Gastrointestinal Disorders: Yes (Hx of GERD.) Hx Liver Disease: No Hx Genitourinary Disorders: No Hx Sexually Transmitted Disorders: No Hx Renal Disease (ESRD): No Hx Thyroid Disease: No Hx Human Immunodeficiency Virus (HIV): No (Never Tested.) Hx Hepatitis C: No (Never Tested.) Hx Depression: Yes (No previous treatment.) Hx Suicide Attempt: No (PATIENT DENIES CURRENT SI / HI.) Hx Bipolar Disorder: Yes (Meds. in past, none currently.) Hx Schizophrenia: No - Patient Surgical History Past Surgical History: Yes Hx Neurologic Surgery: No Hx Cataract Extraction: No Hx Cardiac Surgery: No Hx Lung Surgery: No Hx Breast Surgery: No Hx Breast Biopsy: No Hx Abdominal Surgery: No Hx Appendectomy: No Hx Cholecystectomy: Yes (2012) Hx Genitourinary Surgery: No Hx Orthopedic Surgery: No Other Surgical History: Bilateral inguinal hernia repairs, 2013. Anesthesia Reaction: No - PPD History Date: 02/25/17 Results: 0 mm. - Smoking Cessation Smoking history: Current every day smoker Have you smoked in the past 12 months: Yes Aproximately how many cigarettes per day: 10 Cigars Per Day: 0 Hx Chewing Tobacco Use: No Initiated information on smoking cessation: Yes 'Breaking Loose' booklet given: 02/24/19 - Substances abused Alcohol Substance route: Oral Frequency: Daily Amount used: 5 th of vodka Age of first use: 15 Date of last use: 02/23/19 Heroin Frequency: 3-6 times per week Amount used: 1 bag Age of first use: 15 Date of last use: 02/21/19 Admission Physical Exam [facility] - Vital Signs Vital Signs: Vital Signs - 24 hr 02/24/19 14:08 Temperature 98.8 F Pulse Rate 86 Respiratory 20 Rate Blood Pressure 127/72 Cleared for Admission [facility] - Detox or Rehab [facility] Level of Care: Medically Supervised Breathalyzer - Breathalyzer Breathalyzer: 0 Urine Drug Screen - Test Device Lot number: [id number] Expiration date: 10/23/20 - Control Is test valid?: Yes - Results Drug screen NEGATIVE: No Urine drug screen results: THC-Marijuana, STEPHANIE-Cocaine, BZO-Benzodiazepines Inpatient Rehab Admission - Rehab Decision to Admit Inpatient rehab admission?: No
[2019-02-24] MEDS ORDERED: MAGNESIUM HYDROX 2400MG/30ML ORAL SUSPENSION 30 ML CUP PO PRN (18:59)
[2019-02-24] MEDS ORDERED: hydrOXYzine PAMOATE 25 MG CAPSULE (FP) PO PRN (18:59)
[2019-02-24] MEDS ORDERED: IBUPROFEN 400 MG TABLET (FP) PO PRN (18:59)
[2019-02-24] MEDS ORDERED: diazePAM 5 MG TABLET PO PRN (18:59)
[2019-02-24] MEDS ORDERED: MENTHOL/PHENOL 1 EACH UD MM PRN (18:59)
[2019-02-24] MEDS ORDERED: ACETAMINOPHEN 325 MG TABLET (FP) PO PRN ×2 (18:59)
[2019-02-24] MEDS ORDERED: MAGNESIUM CITRATE 300 ML BOTTLE PO PRN (18:59)
[2019-02-24] MEDS ORDERED: MAG HYDROX/AL HYDROX/SIMETH 30 ML UNIT-DOSE CUP PO PRN (18:59)
[2019-02-24] MEDS ORDERED: METHOCARBAMOL 500 MG TABLET PO PRN (18:59)
[2019-02-24] MEDS ORDERED: BISMUTH SUBSALICYLATE 524 MG/30 ML UD PO PRN (18:59)
--- NOTE | 2019-02-24 19:06 | PN ---
"Teaching Attending Note Name of Resident: Latosha Sifuentes ATTENDING PHYSICIAN STATEMENT I saw and evaluated the patient. I reviewed the resident's note and discussed the case with the resident. I agree with the resident's findings and plan as documented. SUBJECTIVE: pt here requesting detox from opiate and alcohol use , claims 1 bag heroin every other day and 1/5 vodka every other day , current symptoms as above . Pt is very irritable, yelling at staff and service writer advisor , poor historian and questionable reliability , claims he used illicits over the weekend and was referred by probation . OBJECTIVE: wnwd , irritable Vital Signs - 24 hr 02/24/19 14:08 Temperature 98.8 F Pulse Rate 86 Respiratory 20 Rate Blood Pressure 127/72 Search Terms: ramesh sky, 1980 Search Date: 02/24/2019 07:19:20 PM This report was requested by: Nichelle Hinojosa | Reference #: [id number] There are no results for the search terms that you entered. ASSESSMENT AND PLAN: OUD / AUD - Methadone/ Valium detox Cocaine use d/o - EKG Nicotine dependence"
[2019-02-24] MEDS ORDERED: MELATONIN 5 MG TABLETS PO PRN (22:00)
[2019-02-24] MEDS: diazePAM 5 MG TABLET PO SCH (22:31)
[2019-02-24] MEDS: THIAMINE HCL 100 MG TABLET (FP) PO SCH (22:31)
[2019-02-25] MEDS: diazePAM 5 MG TABLET PO SCH ×3 (05:38→22:11)
--- NOTE | 2019-02-25 09:22 | EKG ---
Test Reason : Blood Pressure : / mmHG Vent. Rate : 077 BPM Atrial Rate : 077 BPM P-R Int : 140 ms QRS Dur : 096 ms QT Int : 422 ms P-R-T Axes : 044 030 044 degrees QTc Int : 477 ms NORMAL SINUS RHYTHM MINIMAL VOLTAGE CRITERIA FOR LVH, MAY BE NORMAL VARIANT BORDERLINE ECG WHEN COMPARED WITH ECG OF 10-SEP-2017 13:09, T WAVE AMPLITUDE HAS DECREASED IN ANTERIOR LEADS Confirmed by MD Jade, Papo ([id number]) on 02/25/2019 9:22:08 AM Referred By: Confirmed By:Papo Hansen MD
--- NOTE | 2019-02-25 09:41 | PN ---
S CIWA - CIWA Score Nausea/Vomitin-Mild Nausea/No Vomiting Muscle Tremors: 2 Anxiety: 4-Mod. Anxious/Guarded Agitation: 3 Paroxysmal Sweats: 2 Orientation: 0-Oriented Tacttile Disturbances: 0-None Auditory Disturbances: 0-None Visual Disturbances: 0-None Headache: 1-Very Mild CIWA-Ar Total Score: 13 S Progress Note (SOAP) Subjective: 38 years old male admitted on 02/24/19 for alcohol withdrawal sx management valium is detox regimen patient ate breakfast ambulating on hallway social with peers in day room Objective: 02/25/19 09:40 Vital Signs Temperature 96.5 F L 02/25/19 09:10 Pulse Rate 87 02/25/19 09:10 Respiratory Rate 18 02/25/19 09:10 Blood Pressure 137/78 02/25/19 09:10 O2 Sat by Pulse Oximetry (%) 02/25/19 09:40 lab pending Assessment: 02/25/19 09:41 alcohol withdrawal sx management Plan: continue valium detox regimen
[2019-02-25 10:21] LABS: HEMATOCRIT 40.1 % (35.4-49); HEMOGLOBIN 13.2 GM/dL (11.7-16.9); MCH 29.5 pg (25.7-33.7); MCHC 32.9 g/dl (32.0-35.9); MEAN CELL VOLUME 89.9 fl (80-96); MEAN PLT VOLUME 7.8 fl (7.5-11.1); PLATELET COUNT 314 K/MM3 (134-434); RBC 4.46 M/mm3 (4.00-5.60); RDW 14.9 % (11.9-15.9); WHITE BLOOD COUNT 7.9 K/mm3 (4.0-10.0)
[2019-02-25] MEDS: PRENATAL VITAMINS W/ FOLIC ACID TABLET (FP) PO SCH (10:27)
[2019-02-25 10:32] LABS: ALBUMIN 2.6 g/dl (3.4-5.0); BILIRUBIN,TOTAL 0.5 mg/dL (0.2-1); BLOOD UREA NITROGEN 13.2 mg/dL (7-18); CALCIUM 8.1 mg/dL (8.5-10.1); CREATININE 0.9 mg/dL (0.55-1.3); POTASSIUM 4.2 mmol/L (3.5-5.1); TOT PROT 5.3 g/dl (6.4-8.2)
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
[2019-02-25] MEDS: THIAMINE HCL 100 MG TABLET (FP) PO SCH (22:10)
[2019-02-25] MEDS: TOPIRAMATE 25 MG TABLET (FP) PO SCH (22:11)
[2019-02-26] MEDS ORDERED: diazePAM 5 MG TABLET PO SCH (06:00)
[2019-02-26] MEDS: PRENATAL VITAMINS W/ FOLIC ACID TABLET (FP) PO SCH (10:03)
[2019-02-26] MEDS: TOPIRAMATE 25 MG TABLET (FP) PO SCH (10:03)
--- NOTE | 2019-02-26 12:49 | PN ---
[facility] CIWA - CIWA Score Nausea/Vomitin-Mild Nausea/No Vomiting Muscle Tremors: 2 Anxiety: 2 Agitation: 2 Paroxysmal Sweats: 1-Minimal Palms Moist Orientation: 0-Oriented Tacttile Disturbances: 0-None Auditory Disturbances: 0-None Visual Disturbances: 0-None Headache: 0-None Present CIWA-Ar Total Score: 8 S Progress Note (SOAP) Subjective: 38 years old male admitted on 02/24/19 for alcohol withdrawal sx management treated with valium detox regimen ate breakfast resting on bed limited conversation with staff irritable Objective: 02/26/19 12:47 Vital Signs Temperature 98.4 F 02/26/19 09:13 Pulse Rate 77 02/26/19 09:13 Respiratory Rate 18 02/26/19 09:13 Blood Pressure 123/71 02/26/19 09:13 O2 Sat by Pulse Oximetry (%) Laboratory Last Values WBC 7.9 K/mm3 (4.0-10.0) 02/25/19 08:00 RBC 4.46 M/mm3 (4.00-5.60) 02/25/19 08:00 Hgb 13.2 GM/dL (11.7-16.9) 02/25/19 08:00 Hct 40.1 % (35.4-49) D 02/25/19 08:00 MCV 89.9 fl (80-96) 02/25/19 08:00 MCH 29.5 pg (25.7-33.7) 02/25/19 08:00 MCHC 32.9 g/dl (32.0-35.9) 02/25/19 08:00 RDW 14.9 % (11.9-15.9) 02/25/19 08:00 Plt Count 314 K/MM3 (134-434) 02/25/19 08:00 MPV 7.8 fl (7.5-11.1) 02/25/19 08:00 Sodium 143 mmol/L (136-145) 02/25/19 08:00 Potassium 4.2 mmol/L (3.5-5.1) 02/25/19 08:00 Chloride 110 mmol/L (98-107) H 02/25/19 08:00 Carbon Dioxide 26 mmol/L (21-32) 02/25/19 08:00 Anion Gap 7 MMOL/L (8-16) L 02/25/19 08:00 BUN 13.2 mg/dL (7-18) 02/25/19 08:00 Creatinine 0.9 mg/dL (0.55-1.3) 02/25/19 08:00 Est GFR (CKD-EPI)AfAm 126.02 02/25/19 08:00 Est GFR (CKD-EPI)NonAf 108.73 02/25/19 08:00 Random Glucose 77 mg/dL (74-106) 02/25/19 08:00 Calcium 8.1 mg/dL (8.5-10.1) L 02/25/19 08:00 Total Bilirubin 0.5 mg/dL (0.2-1) 02/25/19 08:00 AST 20 U/L (15-37) 02/25/19 08:00 ALT 19 U/L (13-61) 02/25/19 08:00 Alkaline Phosphatase 87 U/L (45-117) 02/25/19 08:00 Total Protein 5.3 g/dl (6.4-8.2) L 02/25/19 08:00 Albumin 2.6 g/dl (3.4-5.0) L 02/25/19 08:00 RPR Titer Nonreactive (NONREACTIVE) 02/25/19 08:00 lab noted Assessment: 02/26/19 12:48 alcohol withdrawal sx Plan: continue valium detox regimen
[2019-02-26 13:23] VITALS: BP 144/65; PULSE 75; TEMP 98
[2019-02-27] MEDS ORDERED: diazePAM 5 MG TABLET PO ONE (06:00)
== END 2019-02-26 17:27 | disposition left against medical advice (07) | DRG 770 ==
LOC: YASAS 13:23 → Y3N 18:50
PROVIDERS: ADMIT Allergy & Immunology; ATTEND Allergy & Immunology
PROC: HZ2ZZZZ Detoxification Services for Substance Abuse Treatment (ICD-10-PCS; principal; 2019-02-24)
DX: F10.230 Alcohol dependence with withdrawal, uncomplicated (principal); F11.20 Opioid dependence, uncomplicated; F14.20 Cocaine dependence, uncomplicated; F12.20 Cannabis dependence, uncomplicated; F17.210 Nicotine dependence, cigarettes, uncomplicated; F19.24 Other psychoactive substance dependence with psychoactive substance-induced mood disorder; F31.9 Bipolar disorder, unspecified; I10 Essential (primary) hypertension; K21.9 Gastro-esophageal reflux disease without esophagitis; J45.998 Other asthma; Z91.19 Patient's noncompliance with other medical treatment and regimen
CPT/HCPCS: 36415; 80053; 85027; 86593; 93005; 93010

== ENCOUNTER 2019-05-26 20:15 | Inpatient (IN) | payer OTHER ==
--- NOTE | 2019-05-26 21:13 | BHS.RME ---
Substance Use & Tx History - Last Treatment Where was last treatment: Detox CIWA Nausea/Vomitin (vomiting x 3) Muscle Tremors: 4-Moderate,w/Arms Extend Anxiety: 3 Agitation: 2 Paroxysmal Sweats: 2 Orientation: 3-Disoriented Date>2 days Tacttile Disturbances: 0-None Auditory Disturbances: 0-None Visual Disturbances: 0-None Headache: 2-Mild CIWA-Ar Total Score: 19
[2019-05-26 22:05] VITALS: BMI 27.1
--- NOTE | 2019-05-26 22:32 | HP ---
CIWA Score Nausea/Vomitin (vomiting x 3) Muscle Tremors: 4-Moderate,w/Arms Extend Anxiety: 3 Agitation: 2 Paroxysmal Sweats: 2 Orientation: 3-Disoriented Date>2 days Tacttile Disturbances: 0-None Auditory Disturbances: 0-None Visual Disturbances: 0-None Headache: 2-Mild CIWA-Ar Total Score: 19 - Admission Criteria OASAS Guidelines: Admission for Medically Managed Detox: Requires at least one of the followin. CIWA greater than 12 2. Seizures within the past 24 hours 3. Delirium tremens within the past 24 hours 4. Hallucinations within the past 24 hours 5. Acute intervention needed for co occurring medical disorder 6. Acute intervention needed for co occurring psychiatric disorder 7. Severe withdrawal that cannot be handled at a lower level of care (continued vomiting, continued diarrhea, abnormal vital signs) requiring intravenous medication and/or fluids 8. Admitting History and Physical - Smoking History Smoking history: Current every day smoker Have you smoked in the past 12 months: Yes Aproximately how many cigarettes per day: 5 - Alcohol/Substance Use Hx Alcohol Use: Yes (drinking since 19 yo,6 pk beer 24 oz plus 5 shots of vodka daily) Admission [facility] Chief Complaint: Alcohol withdrawal symptoms Allergies/Adverse Reactions: Allergies Allergy/AdvReac Type Severity Reaction Status Date / Time No Known Allergies Allergy Verified 05/26/19 21:49 History of Present Illness: 38 years old male with a long history of alcohol dependence is seeking admission to detox. Patient's last admission to detox was for the period 2018- 02/26/2019. Patient reports that his last heroin use was 3 days ago and his last drink was yesterday. He has medical history of hypertension, GERD, Cardiac arrhythmia, asthma and psych. history of bipolar and depression. He denies suicidal ideation at this time. Patient reports + eye chicken stuffer, blackouts and denies alcohol related seizures Exam Limitations: No Limitations - Ebola screening Have you traveled outside of the country in the last 21 days: No Have you had contact with anyone from an Ebola affected area: No Do you have a fever: No - Review of Systems Constitutional: Chills, Malaise, Night Sweats, Changes in sleep EENT: reports: Sinus Pressure Respiratory: reports: No Symptoms reported Cardiac: reports: No Symptoms Reported GI: reports: Poor Appetite, Poor Fluid Intake, Vomiting, Abdominal cramping : reports: No Symptoms Reported Musculoskeletal: reports: Back Pain Integumentary: reports: Dryness, Flushing Neuro: reports: Tremors Endocrine: reports: No Symptoms Reported Hematology: reports: No Symptoms Reported Psychiatric: reports: Anxious, Depressed Other Systems: Reviewed and Negative Patient History - Patient Medical History Hx Anemia: No Hx Asthma: Yes (albuterol) Hx Chronic Obstructive Pulmonary Disease (COPD): No Hx Cancer: No Hx Cardiac Disorders: Yes (arrhthymia) Hx Congestive Heart Failure: No Hx Hypertension: Yes Hx Hypercholesterolemia: No Hx Pacemaker: No HX Cerebrovascular Accident: No Hx Seizures: No Hx Dementia: No Hx Diabetes: No Hx Gastrointestinal Disorders: Yes (GERD) Hx Liver Disease: No Hx Genitourinary Disorders: No Hx Sexually Transmitted Disorders: No Hx Renal Disease (ESRD): No Hx Thyroid Disease: No Hx Human Immunodeficiency Virus (HIV): No (Negative 2018) Hx Hepatitis C: No Hx Depression: Yes Hx Suicide Attempt: No Hx Bipolar Disorder: Yes (Meds. in past, none currently.) Hx Schizophrenia: No - Patient Surgical History Past Surgical History: Yes Hx Neurologic Surgery: No Hx Cataract Extraction: No Hx Cardiac Surgery: No Hx Lung Surgery: No Hx Breast Surgery: No Hx Breast Biopsy: No Hx Abdominal Surgery: No Hx Appendectomy: No Hx Cholecystectomy: Yes (2012) Hx Genitourinary Surgery: No Hx Orthopedic Surgery: No Other Surgical History: Bilateral inguinal hernia repairs, 2012. Anesthesia Reaction: No - PPD History Previous Implant?: Yes Documented Results: Negative w/o proof Implanted On Prior [facility] Admission?: No Date: 02/25/17 Results: 0 mm. PPD to be Administered?: Yes - Reproductive History Patient is a Female of Child Bearing Age (11 -55 yrs old): No (male) Patient : No - Smoking Cessation Smoking history: Current every day smoker Have you smoked in the past 12 months: Yes Aproximately how many cigarettes per day: 5 Cigars Per Day: 0 Hx Chewing Tobacco Use: No Initiated information on smoking cessation: Yes 'Breaking Loose' booklet given: 05/26/19 - Substance & Tx. History Hx Alcohol Use: Yes Hx Substance Use: Yes Substance Use Type: Alcohol, Cocaine, Marijuana Hx Substance Use Treatment: Yes ([facility]) - Substances abused Heroin Substance route: Inhalation Frequency: 3-6 times per week Amount used: 1 bag Age of first use: 22 Date of last use: 04/28/19 Alcohol Substance route: Oral Frequency: Daily Amount used: 1/5th of vodka Age of first use: 18 Date of last use: 05/25/19 Cocaine Substance route: Inhalation Frequency: 1-2 times per week Amount used: $20 Age of first use: 18 Date of last use: 05/25/19 Admission Physical Exam [facility] - Vital Signs Vital Signs: Vital Signs - 24 hr 05/26/19 21:53 Temperature 97.5 F L Pulse Rate 76 Respiratory 18 Rate Blood Pressure 154/85 - Physical General Appearance: Yes: Moderate Distress, Tremorous, Irritable, Anxious HEENTM: Yes: Nasal Congestion Respiratory: Yes: Lungs Clear, Normal Breath Sounds, No Respiratory Distress Neck: Yes: Within Normal Limits Breast: Yes: Breast Exam Deferred Cardiology: Yes: Within Normal Limits Abdominal: Yes: Normal Bowel Sounds, Soft Genitourinary: Yes: Within Normal Limits Back: Yes: Normal Inspection Musculoskeletal: Yes: Within Normal Limits Extremities: Yes: Tremors Neurological: Yes: Within Normal Limits, Alert, Normal Mood/Affect Integumentary: Yes: Warm Lymphatic: Yes: Within Normal Limits Cleared for Admission [facility] - Detox or Rehab [facility] Level of Care: Medically Managed Detox Regimen/Protocol: Librium Claeared for Rehab Admission: No Breathalyzer - Breathalyzer Breathalyzer: 0 Urine Drug Screen - Test Device Lot number: [id number] Expiration date: 02/22/21 - Control Is test valid?: Yes - Results Drug screen NEGATIVE: No Urine drug screen results: THC-Marijuana, ROJAS-Cocaine Inpatient Rehab Admission - Rehab Decision to Admit Inpatient rehab admission?: No
[2019-05-26] MEDS ORDERED: ACETAMINOPHEN 325 MG TABLET (FP) PO PRN ×2 (23:31)
[2019-05-26] MEDS ORDERED: BISMUTH SUBSALICYLATE 524 MG/30 ML UD PO PRN (23:31)
[2019-05-26] MEDS ORDERED: IBUPROFEN 400 MG TABLET (FP) PO PRN (23:31)
[2019-05-26] MEDS ORDERED: chlordiazePOXIDE HCL 25 MG CAPSULE PO PRN (23:31)
[2019-05-26] MEDS ORDERED: NICOTINE POLACRILEX 2 MG GUM BUC PRN (23:31)
[2019-05-26] MEDS ORDERED: METHOCARBAMOL 500 MG TABLET PO PRN (23:31)
[2019-05-26] MEDS ORDERED: ONDANSETRON *ODT* 4 MG TABLET SL ONE (23:31)
[2019-05-26] MEDS ORDERED: MENTHOL/PHENOL 1 EACH UD MM PRN (23:31)
[2019-05-26] MEDS ORDERED: MAGNESIUM HYDROX 2400MG/30ML ORAL SUSPENSION 30 ML CUP PO PRN (23:31)
[2019-05-26] MEDS ORDERED: MAGNESIUM CITRATE 300 ML BOTTLE PO PRN (23:31)
[2019-05-26] MEDS ORDERED: ALBUTEROL SO4 HFA INHALER IH PRN (23:33)
[2019-05-27] MEDS: chlordiazePOXIDE HCL 25 MG CAPSULE PO SCH ×5 (00:24→22:04)
[2019-05-27 10:25] LABS: HEMATOCRIT 44.9 % (35.4-49); MCH 30.1 pg (25.7-33.7); MCHC 33.4 g/dl (32.0-35.9); MEAN CELL VOLUME 90.3 fl (80-96); MEAN PLT VOLUME 8.4 fl (7.5-11.1); PLATELET COUNT 307 K/MM3 (134-434); RBC 4.97 M/mm3 (4.00-5.60); WHITE BLOOD COUNT 7.6 K/mm3 (4.0-10.0)
[2019-05-27 10:30] LABS: ALBUMIN 3.5 g/dl (3.4-5.0); BILIRUBIN,TOTAL 0.9 mg/dL (0.2-1); BLOOD UREA NITROGEN 13.2 mg/dL (7-18); CALCIUM 8.6 mg/dL (8.5-10.1); POTASSIUM 3.5 mmol/L (3.5-5.1); TOT PROT 6.7 g/dl (6.4-8.2)
--- NOTE | 2019-05-27 10:30 | CONSULT ---
[facility] Psychiatric Consult - Data Date of interview: 05/27/19 Admission source: [facility] Identifying data: Patient left the consultation office. Seconds after initiation of interview. " Why all these questions ? Leave me alone. I don't need psychiatrists. I don't take psychiatric medications." Nursing staff is made aware.
--- NOTE | 2019-05-27 10:35 | EKG ---
Test Reason : Blood Pressure : / mmHG Vent. Rate : 081 BPM Atrial Rate : 081 BPM P-R Int : 132 ms QRS Dur : 090 ms QT Int : 390 ms P-R-T Axes : 052 023 051 degrees QTc Int : 453 ms NORMAL SINUS RHYTHM WITH SINUS ARRHYTHMIA MODERATE VOLTAGE CRITERIA FOR LVH, MAY BE NORMAL VARIANT BORDERLINE ECG WHEN COMPARED WITH ECG OF 24-FEB-2019 19:38, NO SIGNIFICANT CHANGE WAS FOUND Confirmed by Jens Kirkland MD ([id number]) on 05/27/2019 10:35:15 AM Referred By: Dmitry Lara Confirmed By:Jens Kirkland MD
[2019-05-27] MEDS: PRENATAL VITAMINS W/ FOLIC ACID TABLET (FP) PO SCH (10:39)
[2019-05-27] MEDS: NICOTINE 14 MG/24 HOURS TOPICAL PATCH TD SCH (10:39)
--- NOTE | 2019-05-27 14:05 | PN ---
[facility] CIWA - CIWA Score Nausea/Vomitin-Mild Nausea/No Vomiting Muscle Tremors: 4-Moderate,w/Arms Extend Anxiety: 3 Agitation: 3 Paroxysmal Sweats: 2 Orientation: 0-Oriented Tacttile Disturbances: 0-None Auditory Disturbances: 0-None Visual Disturbances: 3-Moderate Sensitivity Headache: 0-None Present CIWA-Ar Total Score: 16 S Progress Note (SOAP) Subjective: 38 years old male admitted on 05/26/19 for alcohol withdrawal sx management treating with librium detox regiment tired resting in bed restlessness limited conversation with staff Objective: 05/27/19 14:03 Vital Signs Temperature 98.8 F 05/27/19 12:44 Pulse Rate 82 05/27/19 12:44 Respiratory Rate 18 05/27/19 12:44 Blood Pressure 160/93 05/27/19 12:44 O2 Sat by Pulse Oximetry (%) Laboratory Last Values WBC 7.6 K/mm3 (4.0-10.0) 05/27/19 07:30 RBC 4.97 M/mm3 (4.00-5.60) 05/27/19 07:30 Hgb 15.0 GM/dL (11.7-16.9) 05/27/19 07:30 Hct 44.9 % (35.4-49) 05/27/19 07:30 MCV 90.3 fl (80-96) 05/27/19 07:30 MCH 30.1 pg (25.7-33.7) 05/27/19 07:30 MCHC 33.4 g/dl (32.0-35.9) 05/27/19 07:30 RDW 14.0 % (11.9-15.9) 05/27/19 07:30 Plt Count 307 K/MM3 (134-434) 05/27/19 07:30 MPV 8.4 fl (7.5-11.1) 05/27/19 07:30 Sodium 136 mmol/L (136-145) 05/27/19 07:30 Potassium 3.5 mmol/L (3.5-5.1) 05/27/19 07:30 Chloride 101 mmol/L (98-107) 05/27/19 07:30 Carbon Dioxide 27 mmol/L (21-32) 05/27/19 07:30 Anion Gap 8 MMOL/L (8-16) 05/27/19 07:30 BUN 13.2 mg/dL (7-18) 05/27/19 07:30 Creatinine 1.0 mg/dL (0.55-1.3) 05/27/19 07:30 Est GFR (CKD-EPI)AfAm 110.94 05/27/19 07:30 Est GFR (CKD-EPI)NonAf 95.72 05/27/19 07:30 Random Glucose 92 mg/dL (74-106) 05/27/19 07:30 Calcium 8.6 mg/dL (8.5-10.1) 05/27/19 07:30 Total Bilirubin 0.9 mg/dL (0.2-1) 05/27/19 07:30 AST 33 U/L (15-37) 05/27/19 07:30 ALT 23 U/L (13-61) 05/27/19 07:30 Alkaline Phosphatase 86 U/L (45-117) 05/27/19 07:30 Total Protein 6.7 g/dl (6.4-8.2) 05/27/19 07:30 Albumin 3.5 g/dl (3.4-5.0) 05/27/19 07:30 RPR Titer Nonreactive (NONREACTIVE) 05/27/19 07:30 lab noted begin amlodipine 10mg po 05/27/19 14:05 Assessment: 05/27/19 14:05 alcohol withdrawal Plan: librium regiment
[2019-05-27] MEDS: amLODIPine BESYLATE 10 MG TABLET (FP) PO SCH (15:06)
[2019-05-27] MEDS: MELATONIN 5 MG TABLETS PO SCH (22:04)
[2019-05-27] MEDS: THIAMINE HCL 100 MG TABLET (FP) PO SCH (22:04)
[2019-05-28] MEDS: chlordiazePOXIDE HCL 25 MG CAPSULE PO SCH ×4 (06:02→22:36)
[2019-05-28] MEDS: PRENATAL VITAMINS W/ FOLIC ACID TABLET (FP) PO SCH (10:27)
[2019-05-28] MEDS: NICOTINE 14 MG/24 HOURS TOPICAL PATCH TD SCH (10:27)
[2019-05-28] MEDS: amLODIPine BESYLATE 10 MG TABLET (FP) PO SCH (10:27)
--- NOTE | 2019-05-28 11:36 | PN ---
[facility] CIWA - CIWA Score Nausea/Vomitin-No Nausea/No Vomiting Muscle Tremors: 3 Anxiety: 2 Agitation: 4-Moderately Restless Paroxysmal Sweats: 1-Minimal Palms Moist Orientation: 0-Oriented Tacttile Disturbances: 0-None Auditory Disturbances: 0-None Visual Disturbances: 2-Mild Sensitivity Headache: 0-None Present CIWA-Ar Total Score: 12 S Progress Note (SOAP) Subjective: 38 years old male admitted on 05/26/19 for alcohol withdrawal sx management treating with librum detox regiment feeling tired tremor and anxiety limited conversation with staff Objective: 05/28/19 11:31 Vital Signs Temperature 99.0 F 05/28/19 08:39 Pulse Rate 97 H 05/28/19 08:39 Respiratory Rate 20 05/28/19 08:39 Blood Pressure 157/98 05/28/19 08:39 O2 Sat by Pulse Oximetry (%) Laboratory Last Values WBC 7.6 K/mm3 (4.0-10.0) 05/27/19 07:30 RBC 4.97 M/mm3 (4.00-5.60) 05/27/19 07:30 Hgb 15.0 GM/dL (11.7-16.9) 05/27/19 07:30 Hct 44.9 % (35.4-49) 05/27/19 07:30 MCV 90.3 fl (80-96) 05/27/19 07:30 MCH 30.1 pg (25.7-33.7) 05/27/19 07:30 MCHC 33.4 g/dl (32.0-35.9) 05/27/19 07:30 RDW 14.0 % (11.9-15.9) 05/27/19 07:30 Plt Count 307 K/MM3 (134-434) 05/27/19 07:30 MPV 8.4 fl (7.5-11.1) 05/27/19 07:30 Sodium 136 mmol/L (136-145) 05/27/19 07:30 Potassium 3.5 mmol/L (3.5-5.1) 05/27/19 07:30 Chloride 101 mmol/L (98-107) 05/27/19 07:30 Carbon Dioxide 27 mmol/L (21-32) 05/27/19 07:30 Anion Gap 8 MMOL/L (8-16) 05/27/19 07:30 BUN 13.2 mg/dL (7-18) 05/27/19 07:30 Creatinine 1.0 mg/dL (0.55-1.3) 05/27/19 07:30 Est GFR (CKD-EPI)AfAm 110.94 05/27/19 07:30 Est GFR (CKD-EPI)NonAf 95.72 05/27/19 07:30 Random Glucose 92 mg/dL (74-106) 05/27/19 07:30 Calcium 8.6 mg/dL (8.5-10.1) 05/27/19 07:30 Total Bilirubin 0.9 mg/dL (0.2-1) 05/27/19 07:30 AST 33 U/L (15-37) 05/27/19 07:30 ALT 23 U/L (13-61) 05/27/19 07:30 Alkaline Phosphatase 86 U/L (45-117) 05/27/19 07:30 Total Protein 6.7 g/dl (6.4-8.2) 05/27/19 07:30 Albumin 3.5 g/dl (3.4-5.0) 05/27/19 07:30 RPR Titer Nonreactive (NONREACTIVE) 05/27/19 07:30 lab noted long history of hypertension none compliance with antihypertensive medications begun amlodipine and begin lisinopril 10 mg po bid Assessment: 05/28/19 11:32 alcohol withdrawal 05/28/19 11:36 hypertension Plan: librium regiment amlodipine and lisinopril
[2019-05-28] MEDS: LISINOPRIL 10 MG TABLET (FP) PO SCH ×2 (13:13→22:35)
[2019-05-28] MEDS: THIAMINE HCL 100 MG TABLET (FP) PO SCH (22:35)
[2019-05-28] MEDS: MELATONIN 5 MG TABLETS PO SCH (22:36)
[2019-05-29] MEDS ORDERED: chlordiazePOXIDE HCL 10 MG CAPSULE PO PRN
[2019-05-29] MEDS: chlordiazePOXIDE HCL 10 MG CAPSULE PO SCH ×4 (05:45→22:42)
--- NOTE | 2019-05-29 10:23 | PN ---
S CIWA - CIWA Score Nausea/Vomitin-No Nausea/No Vomiting (abdominal cramping) Muscle Tremors: 2 Anxiety: 3 Agitation: 1-Slight > Activity Paroxysmal Sweats: 1-Minimal Palms Moist Orientation: 0-Oriented Tacttile Disturbances: 0-None Auditory Disturbances: 0-None Visual Disturbances: 2-Mild Sensitivity Headache: 0-None Present CIWA-Ar Total Score: 9 BHS Progress Note (SOAP) Subjective: 38 years old male admitted on 05/26/19 for alcohol withdrawal sx management treating with librium detox regiment reports stomach cramping bentyl 20 mg po x 1 Objective: 05/29/19 10:22 Vital Signs Temperature 97.6 F 05/29/19 08:55 Pulse Rate 89 05/29/19 08:55 Respiratory Rate 18 05/29/19 08:55 Blood Pressure 131/68 05/29/19 08:55 O2 Sat by Pulse Oximetry (%) Laboratory Last Values WBC 7.6 K/mm3 (4.0-10.0) 05/27/19 07:30 RBC 4.97 M/mm3 (4.00-5.60) 05/27/19 07:30 Hgb 15.0 GM/dL (11.7-16.9) 05/27/19 07:30 Hct 44.9 % (35.4-49) 05/27/19 07:30 MCV 90.3 fl (80-96) 05/27/19 07:30 MCH 30.1 pg (25.7-33.7) 05/27/19 07:30 MCHC 33.4 g/dl (32.0-35.9) 05/27/19 07:30 RDW 14.0 % (11.9-15.9) 05/27/19 07:30 Plt Count 307 K/MM3 (134-434) 05/27/19 07:30 MPV 8.4 fl (7.5-11.1) 05/27/19 07:30 Sodium 136 mmol/L (136-145) 05/27/19 07:30 Potassium 3.5 mmol/L (3.5-5.1) 05/27/19 07:30 Chloride 101 mmol/L (98-107) 05/27/19 07:30 Carbon Dioxide 27 mmol/L (21-32) 05/27/19 07:30 Anion Gap 8 MMOL/L (8-16) 05/27/19 07:30 BUN 13.2 mg/dL (7-18) 05/27/19 07:30 Creatinine 1.0 mg/dL (0.55-1.3) 05/27/19 07:30 Est GFR (CKD-EPI)AfAm 110.94 05/27/19 07:30 Est GFR (CKD-EPI)NonAf 95.72 05/27/19 07:30 Random Glucose 92 mg/dL (74-106) 05/27/19 07:30 Calcium 8.6 mg/dL (8.5-10.1) 05/27/19 07:30 Total Bilirubin 0.9 mg/dL (0.2-1) 05/27/19 07:30 AST 33 U/L (15-37) 05/27/19 07:30 ALT 23 U/L (13-61) 05/27/19 07:30 Alkaline Phosphatase 86 U/L (45-117) 05/27/19 07:30 Total Protein 6.7 g/dl (6.4-8.2) 05/27/19 07:30 Albumin 3.5 g/dl (3.4-5.0) 05/27/19 07:30 RPR Titer Nonreactive (NONREACTIVE) 05/27/19 07:30 lab oted Assessment: 05/29/19 10:22 alcohol withdrawal Plan: librium regiment
[2019-05-29] MEDS ORDERED: DICYCLOMINE HCL 10 MG CAPSULE PO ONE (10:30)
[2019-05-29] MEDS: amLODIPine BESYLATE 10 MG TABLET (FP) PO SCH (10:31)
[2019-05-29] MEDS: PRENATAL VITAMINS W/ FOLIC ACID TABLET (FP) PO SCH (10:31)
[2019-05-29] MEDS: LISINOPRIL 10 MG TABLET (FP) PO SCH ×2 (10:31→22:42)
[2019-05-29] MEDS: NICOTINE 14 MG/24 HOURS TOPICAL PATCH TD SCH (10:32)
[2019-05-29] MEDS: MAG HYDROX/AL HYDROX/SIMETH 30 ML UNIT-DOSE CUP PO PRN (18:15)
[2019-05-29] MEDS: THIAMINE HCL 100 MG TABLET (FP) PO SCH (22:42)
[2019-05-29] MEDS: MELATONIN 5 MG TABLETS PO SCH (22:42)
[2019-05-30] MEDS: chlordiazePOXIDE HCL 10 MG CAPSULE PO SCH ×2 (05:50→18:55)
[2019-05-30] MEDS: LISINOPRIL 10 MG TABLET (FP) PO SCH ×2 (09:09→22:55)
[2019-05-30] MEDS: MAG HYDROX/AL HYDROX/SIMETH 30 ML UNIT-DOSE CUP PO PRN (09:09)
[2019-05-30] MEDS: PRENATAL VITAMINS W/ FOLIC ACID TABLET (FP) PO SCH (09:09)
[2019-05-30] MEDS: amLODIPine BESYLATE 10 MG TABLET (FP) PO SCH (09:09)
[2019-05-30] MEDS: NICOTINE 14 MG/24 HOURS TOPICAL PATCH TD SCH (09:10)
--- NOTE | 2019-05-30 11:09 | PN ---
S CIWA - CIWA Score Nausea/Vomitin-No Nausea/No Vomiting Muscle Tremors: None Anxiety: 1-Mildly Anxious Agitation: 1-Slight > Activity Paroxysmal Sweats: No Perspiration Orientation: 2-Disoriented Date<2 days Tacttile Disturbances: 0-None Auditory Disturbances: 0-None Visual Disturbances: 0-None Headache: 1-Very Mild CIWA-Ar Total Score: 5 BHS Progress Note (SOAP) Subjective: Improving GI upset Objective: 05/30/19 11:04 Laboratory Tests 05/27/19 05/27/19 05/27/19 07:30 07:30 07:30 WBC 7.6 RBC 4.97 Hgb 15.0 Hct 44.9 MCV 90.3 MCH 30.1 MCHC 33.4 RDW 14.0 Plt Count 307 MPV 8.4 Sodium 136 Potassium 3.5 Chloride 101 Carbon Dioxide 27 Anion Gap 8 BUN 13.2 Creatinine 1.0 Est GFR (CKD-EPI)AfAm 110.94 Est GFR (CKD-EPI)NonAf 95.72 Random Glucose 92 Calcium 8.6 Total Bilirubin 0.9 AST 33 ALT 23 Alkaline Phosphatase 86 Total Protein 6.7 Albumin 3.5 RPR Titer Nonreactive Vital Signs - 24 hr 05/29/19 05/29/19 05/29/19 12:28 16:54 21:15 Temperature 98.7 F 100.0 F H 98.9 F Pulse Rate 106 H 113 H 81 Respiratory 18 20 18 Rate Blood Pressure 137/88 137/88 114/71 05/30/19 05/30/19 05/30/19 00:37 03:32 06:19 Temperature 97.8 F Pulse Rate 78 Respiratory 20 18 18 Rate Blood Pressure 130/89 05/30/19 08:44 Temperature 98.7 F Pulse Rate 98 H Respiratory 20 Rate Blood Pressure 111/79 PE Gnl: WDWN, in no distress MS: awake, alert, nl language funciton Motor: nl Gait: steady Assessment: 05/30/19 11:05 1. Alcohol use disorder 05/30/19 11:08 2. opioid use, one bag 3 x per week, no withdrawal sx Plan: 1. Librium withdrawal protocol 2. pending discharge in am
--- NOTE | 2019-05-30 15:07 | DS ---
[facility] Detox Discharge Summary Admission Date: 05/26/19 Discharge Date: 05/30/19 - History Present History: Alcohol Dependence - Physical Exam Results Vital Signs: Vital Signs Temperature 99.1 F 05/30/19 13:18 Pulse Rate 79 05/30/19 13:18 Respiratory Rate 18 05/30/19 13:18 Blood Pressure 112/65 05/30/19 13:18 O2 Sat by Pulse Oximetry (%) Pertinent Admission Physical Exam Findings: PMH: HTN, cardiac arrhythmia, asthma, heroin and alcohol use Psych: bipolar, depression PE Gnl: WDWN, in no distress, impoved GI upset from yesterday MS: awake, alert, nl language Motor: intact Gait: steady - Treatment Hospital Course: Detox Protocol Followed Patient has Accepted a Rehab Referral to: [facility] - Medication Discharge Medications: Ambulatory Orders Albuterol Sulfate Inhaler - [Ventolin HFA Inhaler -] 2 inh PO Q4H PRN 02/23/17 Topiramate [Topamax -] 25 mg PO BID #60 tablet 09/13/17 Quetiapine Fumarate [Seroquel -] 100 mg PO HS 02/24/19 - Diagnosis (1) Alcohol dependence with uncomplicated withdrawal Current Visit: No Status: Acute - AMA Did Patient Leave Against Medical Advice: No (completed detox)
[2019-05-30] MEDS: THIAMINE HCL 100 MG TABLET (FP) PO SCH (22:55)
[2019-05-30] MEDS: MELATONIN 5 MG TABLETS PO SCH (22:55)
[2019-05-31] MEDS ORDERED: chlordiazePOXIDE HCL 10 MG CAPSULE PO ONE (05:00)
[2019-05-31] MEDS ORDERED: TRIMETHOBENZAMIDE HCL 200MG/2ML INJ IM ONE (05:09)
[2019-05-31] MEDS ORDERED: ONDANSETRON *ODT* 4 MG TABLET SL PRN (05:11)
[2019-05-31 07:47] VITALS: BP 124/81; PULSE 121; TEMP 97.2
--- NOTE | 2019-05-31 14:26 | DS ---
[facility] Detox Discharge Summary Admission Date: 05/26/19 Discharge Date: 05/31/19 - History Present History: Alcohol Dependence, Cannabis Dependence, Cocaine Dependence, Opioid Dependence Additional Comments: As per H&P: "38 years old male with a long history of alcohol dependence is seeking admission to detox. Patient's last admission to detox was for the period 02/24/2019-02/26/2019. Patient reports that his last heroin use was 3 days ago and his last drink was yesterday. He has medical history of hypertension, GERD, Cardiac arrhythmia, asthma and psych. history of bipolar and depression. He denies suicidal ideation at this time. 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 Pt is medically cleared and discharged today. Pt completed the detox protocol. Pt is encouraged to follow-up with an outpatient CD program and also to follow- up with his pmd. Pt verbalized understanding of the information given. Pt is alert and oriented x3 and in no acute respiratory distress. Pertinent Past History: h/o HTN, Asthma, heroin, alcohol, cocaine, and cannabis use disorder. - Physical Exam Results Vital Signs: Vital Signs Temperature 97.2 F L 05/31/19 07:46 Pulse Rate 121 H 05/31/19 07:46 Respiratory Rate 18 05/31/19 07:46 Blood Pressure 124/81 05/31/19 07:46 O2 Sat by Pulse Oximetry (%) Vital Signs 05/31/19 05/31/19 05/31/19 06:26 06:30 07:46 Temperature 98.1 F 97.2 F L Pulse Rate 90 121 H Respiratory 18 16 18 Rate Blood Pressure 156/104 H 124/81 Laboratory Last Values WBC 7.6 K/mm3 (4.0-10.0) 05/27/19 07:30 RBC 4.97 M/mm3 (4.00-5.60) 05/27/19 07:30 Hgb 15.0 GM/dL (11.7-16.9) 05/27/19 07:30 Hct 44.9 % (35.4-49) 05/27/19 07:30 MCV 90.3 fl (80-96) 05/27/19 07:30 MCH 30.1 pg (25.7-33.7) 05/27/19 07:30 MCHC 33.4 g/dl (32.0-35.9) 05/27/19 07:30 RDW 14.0 % (11.9-15.9) 05/27/19 07:30 Plt Count 307 K/MM3 (134-434) 05/27/19 07:30 MPV 8.4 fl (7.5-11.1) 05/27/19 07:30 Sodium 136 mmol/L (136-145) 05/27/19 07:30 Potassium 3.5 mmol/L (3.5-5.1) 05/27/19 07:30 Chloride 101 mmol/L (98-107) 05/27/19 07:30 Carbon Dioxide 27 mmol/L (21-32) 05/27/19 07:30 Anion Gap 8 MMOL/L (8-16) 05/27/19 07:30 BUN 13.2 mg/dL (7-18) 05/27/19 07:30 Creatinine 1.0 mg/dL (0.55-1.3) 05/27/19 07:30 Est GFR (CKD-EPI)AfAm 110.94 05/27/19 07:30 Est GFR (CKD-EPI)NonAf 95.72 05/27/19 07:30 Random Glucose 92 mg/dL (74-106) 05/27/19 07:30 Calcium 8.6 mg/dL (8.5-10.1) 05/27/19 07:30 Total Bilirubin 0.9 mg/dL (0.2-1) 05/27/19 07:30 AST 33 U/L (15-37) 05/27/19 07:30 ALT 23 U/L (13-61) 05/27/19 07:30 Alkaline Phosphatase 86 U/L (45-117) 05/27/19 07:30 Total Protein 6.7 g/dl (6.4-8.2) 05/27/19 07:30 Albumin 3.5 g/dl (3.4-5.0) 05/27/19 07:30 RPR Titer Nonreactive (NONREACTIVE) 05/27/19 07:30 Labs noted. Pertinent Admission Physical Exam Findings: withdrawal symptoms. - Treatment Hospital Course: Detox Protocol Followed, Detoxed Safely, Responded well, Discharged Condition Good - Medication Discharge Medications: Ambulatory Orders Albuterol Sulfate Inhaler - [Ventolin HFA Inhaler -] 2 inh PO Q4H PRN 02/23/17 Topiramate [Topamax -] 25 mg PO BID #60 tablet 09/13/17 Quetiapine Fumarate [Seroquel -] 100 mg PO HS 02/24/19 - Diagnosis (1) Alcohol dependence with uncomplicated withdrawal Status: Acute (2) Alcohol dependence Status: Chronic Qualifiers: Substance use status: uncomplicated Qualified Code(s): F10.20 - Alcohol dependence, uncomplicated (3) Asthma Status: Chronic Qualifiers: Asthma severity: mild Asthma persistence: intermittent Asthma complication type: uncomplicated Qualified Code(s): J45.20 - Mild intermittent asthma, uncomplicated (4) History of hypertension Status: Chronic (5) Nicotine dependence Status: Chronic Qualifiers: Nicotine product type: cigarettes (6) Opioid dependence Status: Chronic (7) Opioid dependence, uncomplicated Status: Chronic - AMA Did Patient Leave Against Medical Advice: No
== END 2019-05-31 09:03 | disposition other institution (70) | DRG 773 ==
LOC: YASAS 20:15 → Y3N 22:57
PROVIDERS: ADMIT Allergy & Immunology; ATTEND Allergy & Immunology
PROC: HZ2ZZZZ Detoxification Services for Substance Abuse Treatment (ICD-10-PCS; principal; 2019-05-26)
DX: F11.23 Opioid dependence with withdrawal (principal); F10.230 Alcohol dependence with withdrawal, uncomplicated; F14.20 Cocaine dependence, uncomplicated; F12.20 Cannabis dependence, uncomplicated; F17.210 Nicotine dependence, cigarettes, uncomplicated; F31.9 Bipolar disorder, unspecified; J45.20 Mild intermittent asthma, uncomplicated; K21.9 Gastro-esophageal reflux disease without esophagitis; Z90.49 Acquired absence of other specified parts of digestive tract; Z91.14 Patient's other noncompliance with medication regimen
CPT/HCPCS: 36415; 80053; 85027; 86593; 93005; 93010; Q0162